=== PATIENT | male | born 1945 | race Caucasian/White ===

== ENCOUNTER → 2017-09-24 14:05 | Outpatient (CLI) | payer MEDICARE, SELFPAY ==
[2017-09-24 14:30] LABS: Basophils # 0.1 K/mm3 (0-0.2); Basophils % 1.1 % (0.1-2.0); Eosinophils # 0.5 K/mm3 (0.0-0.4); Eosinophils % 6.6 % (0.1-12.0); Hematocrit 40.6 % (42.0-52.0); Hemoglobin 12.7 g/dL (14.1-18.0); Lymphocytes % 24.3 K/mm3 (10-50); Mean Corpuscular HGB Conc 31.2 g/dL (31.8-35.4); Mean Corpuscular Hemoglobin 26.7 pg (27.0-31.2); Mean Corpuscular Volume 85.5 fl (80-94); Mean Platelet Volume 6.6 fl (7.4-10.4); Monocytes # 0.9 K/mm3 (0.1-1.0); Monocytes % 10.8 % (1.7-9.3); Neutrophils # 4.7 K/mm3 (1.8-7.8); Neutrophils % 57.1 % (37.0-80.0); Platelet Count 206 K/mm3 (142-424); Red Blood Count 4.75 M/mm3 (4.60-6.20); Red Cell Distribution Width 13.2 % (11.5-17.5); White Blood Count 8.2 K/mm3 (4.8-10.8)
[2017-09-24 15:16] LABS: Anion Gap 11.5 mEq/L (5-15); Blood Urea Nitrogen 25 mg/dL (7-18); Carbon Dioxide 31 mmol/L (21.0-32.0); Chloride 101 mmol/L (98-107); Estimated Glomerular Filt Rate 46 ml/min (>60); GFR (African American) 56 ML/MIN (>60); Glucose 186 mg/dL (74-106); Potassium 5.5 mmoL/L (3.5-5.1); Sodium 138 mmol/L (136-145)
== END ==
PROVIDERS: Visit Provider Surgery
DX: Z01.818 Encounter for other preprocedural examination (principal); Z86.010 Personal history of colon polyps; N28.9 Disorder of kidney and ureter, unspecified; I25.10 Atherosclerotic heart disease of native coronary artery without angina pectoris
CPT/HCPCS: 36415; 80048; 85025

== ENCOUNTER → 2017-10-16 11:41 | Outpatient (CLI) | payer MEDICARE, OTHER, SELFPAY ==
--- NOTE | 2017-10-16 11:42 | NM_ITS ---
History and Indications: Coronary artery disease, status post bypass surgery, hypertension diabetes, hyperlipidemia family history and shortness of breath Procedure: Patient received a 0.4 mg Lexiscan, resting heart rate was 64 beats per resting blood pressure 171/88, with Lexiscan maximum heart rate achieved was 82 bpm which is less than 85% of the maximum predicted heart rate and a blood pressure was 156/82. With Lexiscan patient complained of chest tightness. Electrocardiogram: Resting electrocardiogram showed the sinus rhythm high lateral infarct, the right ventricular conduction delay possible anteroseptal infarct. With Lexiscan there is less than 1.[address] segment depression noted from the baseline EKG. The EKG portion of the Lexiscan Myoview is nondiagnostic Cardiac stress and resting SPECT images: Cardiac stress and rest SPECT images were obtained using technetium 99 Myoview 31.1 mCi at stress and 10.4 mCi at rest, gated SPECT further analysis of segmental wall motion and calculation of the ejection fraction also done. Cardiac stress and rest images show decreased tracer activity in the anterior, anteroapical and anterolateral wall which improves on the resting images suggestive of reversible ischemia. Computer derived ejection fraction is 56% with no obvious regional wall motion abnormality, right ventricle is normal size and contractility. Conclusion: 1. The EKG portion of the Lexiscan Myoview is nondiagnostic. 2. Scintigraphic evidence of mild reversible is involving the anterior, anteroapical and anterolateral wall. Computer derived ejection fraction is 56% with no obvious regional wall motion abnormality, right ventricle is normal size and contractility. 3. Abnormal Lexiscan Myoview study.
--- NOTE | 2017-10-16 12:42 | CA_ITS ---
PROCEDURE: 2-D M-mode and color Doppler study. INDICATIONS FOR THE TEST: Chest pain COPD Heart Murmur Tobacco Smoking Palpitations Fatigue Syncopex Edema HypertensionxDiabetes Mellitusx Rheumatic Fever SOB DOExObesity Hyperlipidemia Family History HD Additional History CAD, Abnormal EKG, RBBB PATIENT INFORMATION HEIGHT: 5'8'' WEIGHT: 235 GENDER: Male B/P: 122/62 Comments: Moderate calcification of the Aortic valve with mild aortic stenosis noted. 2-D/M-MODE INTERPRETATION: 2-D MEASUREMENTS OBSERVED VALUES IN CMS Right Ventricular Dimension (RVDd) 2.6 Interventricular Septum (Thickness)(IVsd) 1.0 Left Ventricular Internal Dimensions(LVIDd) 5.1 Left Ventricular Posterior Wall (Thickness)(LVPWd) 1.1 Aortic Root 3.1 Aortic Cusp Separation 1.5 Left Atrial Dimensions (LAD) 3.8 2D 1. Technically very difficult study because of the patient's factor and poor acoustic windows 2. The left atrium is mildly enlarged, left ventricle is normal size, there is mild qualitative concentric left ventricular hypertrophy, visually estimated ejection fraction approximately 45-50%, there appears to be hypokinesis involving the distal septum and apical wall. A repeat study with Definity contrast is recommended. 3. The right atrium and right ventricle are normal size and contractility. 4. The aortic valve is thickened and calcified leaflet continue to display mobility. 5. The mitral valve has mitral calcification, there is no mitral stenosis 6. The pulmonic valve is poorly visualized. 7. The tricuspid valve is grossly normal. 8. No significant pericardial effusion noted. DOPPLER INTERROGATION: The aortic outflow velocities mildly increased, does not represent any significant aortic stenosis, there is no aortic insufficiency. Mild mitral and tricuspid regurgitation, tricuspid and jet velocity insufficient for calculation of right ventricular systolic pressure, grade 1 diastolic dysfunction seen without tissue Doppler evidence of raised left atrial pressure. CONCLUSION: 1. Technically difficult study because of the patient's factor and poor acoustic windows 2. Normal left ventricular size, mild concentric left ventricular hypertrophy, visually estimated ejection fraction approximately 50% with segmental wall motion abnormality described above, a repeat study with Definity contrast is recommended. Grade 1 diastolic dysfunction seen without tissue Doppler evidence of raised left atrial pressure. 3. Thickened and calcified aortic valve without Doppler evidence of significant aortic
--- NOTE | 2017-10-16 14:13 | HMH.ITSHM ---
amlodipine asa carvdilol lisinopril
== END ==
PROVIDERS: PCP Internal Medicine; Visit Provider Internal Medicine
DX: R06.09 Other forms of dyspnea (principal); R93.1 Abnormal findings on diagnostic imaging of heart and coronary circulation; I20.9 Angina pectoris, unspecified; I35.0 Nonrheumatic aortic (valve) stenosis; R42 Dizziness and giddiness
CPT/HCPCS: 78452; 93017; 93306; A9502; J2785

== ENCOUNTER → 2017-10-20 13:16 | Outpatient (CLI) | payer MEDICARE, OTHER, SELFPAY ==
--- NOTE | 2017-10-20 13:41 | US_ITS ---
US Arterial Ankle Brachial Ind History: ITS.REASON: claudication, bilateral calf pain ORDERING PHYSICIAN: Shimon De Paz MD PATIENT AGE: 72 years TECHNIQUE: Segmental pressures obtained of both right and left leg. These are compared to brachial blood pressure to yield index at each level sampled including summary MARIALUISA. The data sheets from the procedure are available in PACS FINDINGS Rest study only performed today No prior studies available for comparison. Blood pressures reported are in millimeters mercury. RIGHT LEG MARIALUISA = 1.2. RIGHT LEG TBI=0.7 Brachial BP: 174 Thigh BP: 248 Calf BP: 238 Ankle PT: 213 Ankle DP : 222 Digit =127 LEFT LEG MARIALUISA = 0.7 LEFT LEG TBI= 0.6 Brachial BPD: 167 Thigh BP: 244 Calf BP: 119 Ankle PT:119 Ankle DP: >254 Digit = 100 Pulses and waveforms: Normal IMPRESSION: 1. Low left MARIALUISA consistent with moderate arterial disease 2. Slightly low bilateral ABIs suggesting small vessel disease
== END ==
PROVIDERS: PCP Internal Medicine; Visit Provider Internal Medicine
DX: I73.9 Peripheral vascular disease, unspecified (principal); M79.661 Pain in right lower leg; M79.662 Pain in left lower leg
CPT/HCPCS: 93922

== ENCOUNTER → 2017-10-22 08:19 | Outpatient (CLI) | payer MEDICARE, OTHER, SELFPAY ==
--- NOTE | 2017-10-22 08:21 | CA_ITS ---
PROCEDURE: 2-D M-mode and color Doppler study INDICATIONS FOR THE TEST: Chest pain+ COPD Heart Murmur Tobacco Smoking Palpitations Fatigue Syncope Edema Hypertension+Diabetes Mellitus+ Rheumatic Fever SOB LEWIS Obesity+Hyperlipidemia Family History HD Additional History DEFINITY PATIENT INFORMATION HEIGHT: 68 WEIGHT:235 GENDER: Male B/P:120/60 2-D/M-MODE INTERPRETATION: 2-D MEASUREMENTS OBSERVED VALUES IN CMS Right Ventricular Dimension (RVDd) Interventricular Septum (Thickness)(IVsd) Left Ventricular Internal Dimensions(LVIDd) Left Ventricular Posterior Wall (Thickness)(LVPWd) Aortic Root Aortic Cusp Separation Left Atrial Dimensions (LAD) 2D Definity contrast this study is very suboptimal. DOPPLER INTERROGATION: CONCLUSION: Despite Definity contrast study is very suboptimal
== END ==
PROVIDERS: PCP Internal Medicine; Visit Provider Internal Medicine
DX: R06.09 Other forms of dyspnea (principal); R93.1 Abnormal findings on diagnostic imaging of heart and coronary circulation; I20.9 Angina pectoris, unspecified; R42 Dizziness and giddiness; I35.0 Nonrheumatic aortic (valve) stenosis
CPT/HCPCS: 93308; Q9957

== ENCOUNTER → 2017-11-17 14:05 | Outpatient (CLI) | payer MEDICARE, OTHER, SELFPAY | PROVIDERS: PCP Internal Medicine; Visit Provider Urology | DX: G47.33 Obstructive sleep apnea (adult) (pediatric) (principal); R06.83 Snoring; R40.0 Somnolence | CPT/HCPCS: G0399 ==

== ENCOUNTER → 2017-12-01 12:06 | Outpatient (CLI) | payer MEDICARE, SELFPAY ==
[2017-12-01 13:27] LABS: Anion Gap 10.2 mEq/L (5-15); Blood Urea Nitrogen 27 mg/dL (7-18); Calcium 8.7 mg/dL (8.5-10.1); Carbon Dioxide 30 mmol/L (21.0-32.0); Chloride 106 mmol/L (98-107); Creatinine,Serum 1.81 mg/dL (0.70-1.30); Estimated Glomerular Filt Rate 37 ml/min (>60); GFR (African American) 45 ML/MIN (>60); Glucose 245 mg/dL (74-106); Potassium 5.2 mmoL/L (3.5-5.1); Sodium 141 mmol/L (136-145)
== END ==
PROVIDERS: PCP Internal Medicine; Visit Provider Physician Assistant
DX: R06.09 Other forms of dyspnea (principal); I50.23 Acute on chronic systolic (congestive) heart failure
CPT/HCPCS: 36415; 80048

== ENCOUNTER → 2018-03-05 09:48 | Outpatient (CLI) | payer MEDICARE, OTHER, SELFPAY ==
--- NOTE | 2018-03-05 09:50 | CI_ITS ---
Cerebrovascular Exam Indications: 780.4 Dizziness and giddiness. IMPRESSIONS 1. Study suggests 70-99% stenosis involving the right internal carotid artery. Disease progression from the study of 2005. 2. Study suggests 20-49%(upper end of scale)stenosis involving the left internal carotid artery. Disease progression from the study of 2005. History: Coronary artery disease. Risk factors: Hypertension. Diabetes mellitus. Hyperlipidemia. Carotid duplex study. Complete study and Doppler flow study including spectral analysis, color and jacobo scale imaging. Height: Height: 175.3cm. Height: 69in. Weight: Weight: 105.2kg. Weight: 231.5lb. Body mass index: BMI: 34.3kg/m^2. Body surface area: BSA: 2.3m^2. Location: Vascular laboratory. Patient status: Outpatient. Tables: Arterial flow: + +--------+--------+ Location V sys V ed + +--------+--------+ Right CCA - proximal 72.3cm/s 15.7cm/s + +--------+--------+ Right CCA - distal 53.5cm/s 13.8cm/s + +--------+--------+ Right ECA 211cm/s -------- + +--------+--------+ Right ICA - proximal 358cm/s 112cm/s + +--------+--------+ Right ICA - mid 286cm/s 96cm/s + +--------+--------+ Right ICA - distal 100cm/s 24.4cm/s + +--------+--------+ Right vertebral 42.6cm/s -------- + +--------+--------+ Left CCA - proximal 101cm/s 22.3cm/s + +--------+--------+ Left CCA - distal 81.7cm/s 16.8cm/s + +--------+--------+ Left ECA 179cm/s -------- + +--------+--------+ Left ICA - proximal 127cm/s 34.1cm/s + +--------+--------+ Left ICA - mid 106cm/s 27.9cm/s + +--------+--------+ Left ICA - distal 62.3cm/s 22.1cm/s + +--------+--------+ Left vertebral 45.8cm/s -------- + +--------+--------+ Velocity ratios: + + + + + + Right, V sys Right, V ed Left, V sys Left, V ed + + + + + + Max ICA/dist CCA 6.69 8.12 1.55 2.03 + + + + + + (Report amended ) Electronically signed by: Yvon Russell [id number]
== END ==
PROVIDERS: PCP Internal Medicine; Visit Provider Internal Medicine
DX: I65.29 Occlusion and stenosis of unspecified carotid artery (principal); R42 Dizziness and giddiness
CPT/HCPCS: 93880

== ENCOUNTER → 2018-03-16 19:26 | Outpatient (CLI) | payer MEDICARE, OTHER, SELFPAY | PROVIDERS: PCP Internal Medicine; Visit Provider Nurse Practitioner Family | DX: G47.33 Obstructive sleep apnea (adult) (pediatric) (principal); R40.0 Somnolence | CPT/HCPCS: 95811 ==

== ENCOUNTER → 2018-04-03 13:31 | Outpatient (CLI) | payer MEDICARE, OTHER, SELFPAY ==
--- NOTE | 2018-04-03 13:35 | CT_ITS ---
CT chest wo con HISTORY: Chest pain and shortness of air, abnormal chest x-ray, shortness of breath. Pleural thickening versus mass in the left lower lobe ITS.REASON: without contrast ORDERING PHYSICIAN: Shimon De Paz MD PATIENT AGE: 72 years COMPARISON: 08/20/2011 Technique: Axial images obtained with sagittal and coronal reformats. All CT scans at the facility use one or more dose reduction, viz: automated exposure control, ma/kV adjustment per patient size (including targeted exams where dose is matched to indication, i.e. head), or iterative reconstruction technique. FINDINGS: There are scattered small nodes in the mediastinum not significantly changed. No dominant adenopathy or mass. There has been a prior CABG. No central obstructing lesion. There are scattered mild atelectatic/fibrotic changes on the right. Noncalcified 4 mm left upper lobe nodule #3/25. Atelectatic or fibrotic changes in the left upper lobe posterior laterally with pleural thickening which is developed in the interval.. There is a new 4.5 x 2.5 x 3.6 cm soft tissue mass in the left lung base posteriorly. There are some ectatic bronchi along the peripheral aspect of this lesion. There is a small loculated pleural effusion in the left lung base posteriorly. The soft tissue density would account for the radiographic abnormality. Upper abdominal images show cholelithiasis. No acute bony findings are evident. IMPRESSION: 1. There is a new 4.5 x 2.5 x 3.6 cm soft tissue mass in the left lung base posteriorly. There are associated thickened bronchi around this lesion along with multiloculated effusion and pleural thickening on the left. Differential diagnosis includes neoplasm, rounded atelectasis or pneumonia with dense consolidation. Bronchoscopy suggested for further evaluation. 2. Pleural thickening on the left with small loculated effusion in the left lung base
== END ==
PROVIDERS: PCP Internal Medicine; Visit Provider Internal Medicine
DX: E11.9 Type 2 diabetes mellitus without complications (principal); E78.5 Hyperlipidemia, unspecified; G47.33 Obstructive sleep apnea (adult) (pediatric); I11.9 Hypertensive heart disease without heart failure; I25.10 Atherosclerotic heart disease of native coronary artery without angina pectoris; I35.0 Nonrheumatic aortic (valve) stenosis; I45.10 Unspecified right bundle-branch block; I50.20 Unspecified systolic (congestive) heart failure; I65.29 Occlusion and stenosis of unspecified carotid artery; I73.9 Peripheral vascular disease, unspecified; N18.3 Chronic kidney disease, stage 3 (moderate); N18.9 Chronic kidney disease, unspecified; R06.00 Dyspnea, unspecified; R42 Dizziness and giddiness
CPT/HCPCS: 71250

== ENCOUNTER → 2018-05-11 14:48 | Outpatient (CLI) | payer MEDICARE, OTHER, SELFPAY ==
--- NOTE | 2018-05-11 14:54 | CT_ITS ---
CT head/brain wo con HISTORY: Dizziness, imbalance ITS.REASON: UNSTEADY BALANCE ORDERING PHYSICIAN: Yordy Narayanan PATIENT AGE: 72 years COMPARISON: None TECHNIQUE: Axial images obtained without contrast. Brain and bone windows reviewed. All CT scans at the facility use one or more dose reduction, viz: automated exposure control, ma/kV adjustment per patient size (including targeted exams where dose is matched to indication, i.e. head), or iterative reconstruction technique. FINDINGS: No midline shift, mass effect, intracranial hemorrhage, hydrocephalus, or extra-axial fluid collection is evident. There are intralesional changes of age with brain volume loss and mild periventricular ischemic gliotic change. The calvarium has an unremarkable appearance. No mastoid effusion. No sinus air-fluid levels.. IMPRESSION: No acute intracranial findings
== END ==
PROVIDERS: PCP Internal Medicine; Visit Provider Internal Medicine
DX: R26.89 Other abnormalities of gait and mobility (principal)
CPT/HCPCS: 70450

== ENCOUNTER → 2018-05-18 15:02 | Outpatient (CLI) | payer MEDICARE, OTHER, SELFPAY ==
[2018-05-18 15:23] LABS: Basophils # 0.1 K/mm3 (0-0.2); Basophils % 0.8 % (0.1-2.0); Eosinophils # 0.6 K/mm3 (0.0-0.4); Eosinophils % 7.3 % (0.1-12.0); Hematocrit 38.1 % (42.0-52.0); Hemoglobin 12.1 g/dL (14.1-18.0); Lymphocytes # 1.9 K/mm3 (0.7-4.5); Lymphocytes % 24.5 % (10-50); Mean Corpuscular HGB Conc 31.8 g/dL (31.8-35.4); Mean Corpuscular Hemoglobin 26.9 pg (27.0-31.2); Mean Corpuscular Volume 84.7 fl (80-94); Monocytes # 0.8 K/mm3 (0.1-1.0); Monocytes % 9.4 % (1.7-9.3); Neutrophils # 4.6 K/mm3 (1.8-7.8); Neutrophils % 58.1 % (37.0-80.0); Platelet Count 213 K/mm3 (142-424); Red Cell Distribution Width 14.4 % (11.5-17.5); White Blood Count 7.9 K/mm3 (4.8-10.8)
[2018-05-20 09:31] LABS: Vitamin B12 616 pg/mL (232-1245)
== END ==
PROVIDERS: Visit Provider Specialist
DX: R18.8 Other ascites (principal); G47.33 Obstructive sleep apnea (adult) (pediatric)
CPT/HCPCS: 36415; 82607; 84443; 85025

== ENCOUNTER → 2019-06-28 10:03 | Outpatient (CLI) | payer MEDICARE, OTHER, SELFPAY ==
[2019-06-28 10:30] LABS: Basophils # 0.1 K/mm3 (0-0.2); Basophils % 0.7 % (0.1-2.0); Eosinophils # 0.4 K/mm3 (0.0-0.4); Eosinophils % 5.5 % (0.1-12.0); Hemoglobin 12.2 g/dL (14.1-18.0); Lymphocytes # 1.8 K/mm3 (0.7-4.5); Lymphocytes % 24.5 % (10-50); Mean Corpuscular HGB Conc 32.1 g/dL (31.8-35.4); Mean Corpuscular Hemoglobin 27.6 pg (27.0-31.2); Mean Corpuscular Volume 85.7 fl (80-94); Mean Platelet Volume 7.2 fl (7.4-10.4); Monocytes # 0.8 K/mm3 (0.1-1.0); Monocytes % 11.4 % (1.7-9.3); Neutrophils # 4.3 K/mm3 (1.8-7.8); Neutrophils % 57.9 % (37.0-80.0); Platelet Count 208 K/mm3 (142-424); Red Blood Count 4.44 M/mm3 (4.60-6.20); Red Cell Distribution Width 14.2 % (11.5-17.5); White Blood Count 7.4 K/mm3 (4.8-10.8)
[2019-06-28 11:29] LABS: Chloride 106 mmol/L (98-107); Sodium 140 mmol/L (136-145)
[2019-06-28 11:30] LABS: Potassium 4.2 mmoL/L (3.5-5.1)
[2019-06-28 11:32] LABS: Alanine Aminotransferase 17 U/L (12-78); Albumin Level 3.5 g/dl (3.5-5.0); Albumin/Globulin Ratio 1.3 (1.1-1.8); Alkaline Phosphatase 75 U/L (38-126); Anion Gap 11.2 mEq/L (5-15); Aspartate Amino Transferase 23 U/L (17-59); Bilirubin,Total 0.3 mg/dl (0.2-1.3); Blood Urea Nitrogen 29 mg/dl (9-20); Carbon Dioxide 27 mmol/L (22.0-30.0); Estimated Glomerular Filt Rate 46 ml/min (>60); GFR (African American) 56 ML/MIN (>60); Globulin 2.8 g/dL (1.3-3.2); Glucose 173 mg/dl (74-100); Total Protein,Serum 6.3 g/dl (6.3-8.2)
== END ==
PROVIDERS: Visit Provider Surgery
DX: Z12.11 Encounter for screening for malignant neoplasm of colon (principal); R18.8 Other ascites
CPT/HCPCS: 36415; 80053; 85025

== ENCOUNTER → 2019-07-06 06:08 | Outpatient (CLI) | payer MEDICARE, OTHER, SELFPAY ==
--- NOTE | 2019-07-06 06:09 | NM_ITS ---
APPROVED REPORT Exam: Nuclear Stress Test Indication: Chest pain, SOB, Pre op, CAD, HTN, DM, High cholesterol, Former Tobacco use, Family history Patient Location: Outpatient Stress Tech: Lauren Kapoor MD Tech:Lise Deal, ARRT, RT (R)(N) Ht: 5 ft 8 in Wt: 230 lbs Bra Size: 119 HR: 64 bpm BP: 157/75 mmHg BSA: 2.17 m2 BMI: 34.9 History: Chest pain, SOB, Pre op, CAD, HTN, DM, High cholesterol, Former Tobacco use, Family history Procedure: Patient received a 0.4 mg of intravenous Lexiscan, resting heart rate 64 bpm, resting blood pressure 157/75 mmHg, with Lexiscan maximum heart rate achived was 74 bpm which is % of the maximum predicted heart rate and blood pressure was 119/56 mmHg. With Lexiscan, patient denied any complaint of chest pain. Cardiac Stress and Resting SPECT Images: Cardiac Stress and Resting SPECT images were obtained using technetium 99m Myoview 30.5 mCi stress and 10.45 mCi at rest. EF is low at 49%, anterior akinesia There is fixed decrease activity in the anterior wall which slightly improves on delayed images Conclusion: Low EF with ischemic changes in anterior wall Electronically signed by : Yvon Russell MD 07/06/2019 16:35:04
--- NOTE | 2019-07-06 06:09 | CA_ITS ---
APPROVED REPORT Exam: Pharmacologic Technologist: Lauren Kapoor, Ht: 5 ft 8 in Wt: 230 lbs BSA: 2.17 m2 HR: 64 bpm BP: 157/75 mmHg Indications: Chest pain Medical History Medical History: Diabetes, HTN, CAD s/p CABG Medications: Lorsartan:Gillipizide:Atrovastatin:Carvedilol:Lasix:Clopidogrel: Isosorbide,Aspirin,Famatidine, Allergies: No known drug allergies Cardiac Risk Factors: HTN, Hyperlipidemia, Diabetes (non-insulin) Previous Cardiac Procedures: CABG, PCI, Myocardial infarction Stress Test Details Test: LEXISCAN HR Resting HR: 65 bpm Max Heart Rate (APMHR): 147 bpm Max HR Achieved: 82 bpm Target HR (85% APMHR): 124 bpm % of APMHR: 55 Recovery HR: 74 bpm BP Resting BP: 157/75 mmHg Max BP: 176/86 mmHg Recovery BP: 158.0/72.0 mmHg ECG Clinical Reason for Termination: Completed protocol Exercise duration: 04:06 min Highest Stage Achieved: Exercise capacity: 1.0 METs Stress ECG Conclusion Mild malaise - no chest pain - no ectopy - no significant ST-T changes . Conclusion - unremarkable Lexiscan stress - myoview images reported separately. Test Summary REST . . . . . . . Resting REST 08:39 . . 65 . 157/ 75 . . Stage 1 01:00 . . 71 . . . . Stage 2 01:00 . . 74 . 119/ 56 . . Stage 3 01:00 . . 74 . 170/ 82 . . Stage 4 01:00 . . 74 . . . . Stage 4 01:06 . . 74 . . . Stop exercise at 04:06 RECOVERY 01:00 . . 74 . 176/ 86 . . RECOVERY 02:00 . . 75 . 176/ 82 . . RECOVERY 03:00 . . 72 . 176/ 82 . . RECOVERY 04:00 . . 73 . 176/ 82 . . RECOVERY 04:38 . . 74 . 176/ 82 . . Electronically signed by : Shimon De Paz, 07/08/2019 12:04:59
--- NOTE | 2019-07-06 07:27 | HMH.ITSHM ---
Current Home Medications as stated by this patient Michael Sheffield or new accounts representative. []LOSARTAN GLIPIZIDE ATORVASTATIN CARVEDILOL FUROSEMIDE CLOPIDOGREL HYDROCODONE ISOSORBIDE ASA FAMOTIDINE VITAMIN D3 MOTION SICKNESS RELIEF
== END ==
PROVIDERS: PCP Internal Medicine; Visit Provider Nurse Practitioner Family
DX: E78.5 Hyperlipidemia, unspecified (principal); I11.9 Hypertensive heart disease without heart failure; I25.10 Atherosclerotic heart disease of native coronary artery without angina pectoris; I73.9 Peripheral vascular disease, unspecified; Z87.891 Personal history of nicotine dependence; Z95.1 Presence of aortocoronary bypass graft
CPT/HCPCS: 78452; 93017; 93306; A9502; J2785

== ENCOUNTER → 2019-09-29 09:58 | Outpatient (CLI) | payer MEDICARE, OTHER, SELFPAY ==
[2019-09-29 11:22] LABS: Coronavirus 19 IgG Antibody Negative (Negative); Coronavirus 19 IgM Antibody Negative (Negative)
== END ==
PROVIDERS: Visit Provider Surgery
DX: Z01.818 Encounter for other preprocedural examination (principal); Z12.11 Encounter for screening for malignant neoplasm of colon
CPT/HCPCS: 36415; 86328

== ENCOUNTER 2019-09-30 06:06 | Day surgery (SDC) | payer MEDICARE, OTHER, SELFPAY ==
--- NOTE | 2019-09-28 11:01 | SUR.PREOP ---
09/28/2019 @ 1100--PHONE CALL MADE TO PATIENT. PATIENT UNDERSTANDS THAT LAB WORK AND COVID TESTING NEEDS TO BE COMPLETED @ 1030 ON 09/29/2019. PATIENT UNDERSTANDS IF LAB WORK AND COVID-19 TESTS ARE NOT COMPLETED BY 12PM ON THAT DATE, THE SURGERY SCHEDULED WILL BE CANCELLED AND RESCHEDULED FOR ANOTHER TIME.
[2019-09-30 06:39] VITALS: BP 176/81; PULSE 66; RESP 20; TEMP 36.8; O2SAT 97; BMI 34.9
[2019-09-30 06:57] LABS: POC Glucose,Bedside 177 (70-110)
--- NOTE | 2019-09-30 07:05 | P.PN_ITS ---
[facility] Anesthesia Checklist - Patient Identification Patient Identification: Arm Band, Verbal (Name & ) - Structural Data Admitted From: Home Planned Operative Procedure/s: Colonoscopy Consent for Planned Operative Procedure(s) Verified: Yes Verified Documents: Surgical Consent, History and Physical, Cardiac Clearance - NPO Status Verified Time NPO: 00:00 - Chart Verification Results Verified: CBC, BMP, PT, PTT, INR - Additional verifications Fingerstick Blood Glucose: 117 Anesthesia Reactions: No - Airway Assessment C-Spine Mobility Assessed: Yes TMJ Mobility Assessed: Yes Dentition: Edentulous - Neurological Assessment Level of Consciousness: Awake, Alert, Appropriate, Follows Commands Hx Seizures: No Numbness or tingling in extremities: No - Anesthesia Plan Anesthesia Risk discussed: Yes Anesthesia Plan: Verified ASA Class: III Anesthesia Type: MAC [facility] History I have reviewed the patient's past medical history: Yes Medical History: Reports:: Cancer (skin), Carotid Stenosis, Congestive Heart Failure, Coronary Artery Disease, Diabetes Mellitus Type 2, Hyperlipidemia, Hypertension Denies:: Diabetes Mellitus Type 1, Internal Pacemaker, MRSA, Seizures *Have you ever received a pneumonia vaccine?: Yes *Have you received a flu vaccine this season?: Yes Other Medical History: Reports: Other Comment:: obesity, angina, PAD Anesthesia experience/problems:: None Other Surgeries: Yes: Angioplasty, CABG, Cancer Surgery, Cardiac Catheterization, Cardiac Surgery, Colonoscopy, Coronary Stent, Skin Cancer Excision, Other. No: Pacemaker Amputation: No Fractures: No - *Social History Smoking Status: Former smoker Tobacco Type: cigarettes Alcohol Intake: never Alcohol Intake Frequency:: other Substance Use Type: denies use *Occupational Status:: retired Housing: house Household Members: spouse *Travel in the last 8 weeks: None Family Hx:: Hypertension, Diabetes, Coronary Artery Disease, Stroke
[2019-09-30 07:23] VITALS: O2SAT 97
[2019-09-30 08:25] VITALS: BP 125/70; PULSE 68; RESP 16; TEMP 36.5; O2SAT 95
--- NOTE | 2019-09-30 08:28 | HMH.SCOPE ---
- Procedure: Date: 09/30/19 Procedure Performed:: Colonoscopy with polypectomy by means other than snare Indications:: History of colon polyps Performing Provider:: Jd Aly MD Referring Provider:: . Sedation:: Monitored anesthesia care Procedure:: After informed consent was obtained the patient was taken to the endoscopy suite. Sedation ensued after the patient was transferred to the left lateral decubitus position. Pulse, blood pressure, and oxygen saturation were monitored throughout the procedure. Digital rectal exam revealed no significant abnormality. The colonoscope was placed in position. The entire colon was evaluated. The colonoscope was carefully removed and the patient was transferred to recovery in stable condition. Please see findings and specimens below for detail. Findings:: Bowel preparation fair to moderate Hemorrhoidal tags Significant lack of relaxation/spasticity Multiple hyperplastic-appearing polyps throughout colon with specific concentration in sigmoid Multiple sessile polyps (see specimens) Specimens:: Mid right colon focus of hypervascularity (biopsied) Mid right colon polyp and adjacent polyps (x3) Hepatic flexure polyp Sessile adjacent polyps around 65 cm (x4) Polyp at 50 cm Large sessile polyp at 35 cm Cluster of polyps around 25 cm (biopsied) Recommendations:: Timing of repeat colonoscopy is pending pathology but will likely be between 1-3 years secondary to volume of polyps and lack of relaxation/spasticity. Complications:: No immediate Estimated blood obtained (mL): 1
[2019-09-30 08:35] VITALS: BP 129/69; PULSE 69; RESP 16; O2SAT 98
[2019-09-30 08:45] VITALS: BP 149/78; PULSE 66; RESP 16; O2SAT 96
[2019-09-30 08:55] VITALS: BP 152/79; PULSE 68; RESP 16; O2SAT 96
== END 2019-09-30 08:55 | disposition home or self-care (01) ==
LOC: OUTP 06:07
PROVIDERS: PCP Internal Medicine; Visit Provider Surgery
PROC: 0DJD8ZZ Inspection of Lower Intestinal Tract, Via Natural or Artificial Opening Endoscopic (ICD-10-PCS; principal; 2019-09-30 07:30)
DX: Z12.11 Encounter for screening for malignant neoplasm of colon (principal); K58.9 Irritable bowel syndrome, unspecified; K64.9 Unspecified hemorrhoids; K63.5 Polyp of colon; Z86.010 Personal history of colon polyps; Z88.8 Allergy status to other drugs, medicaments and biological substances; Z79.82 Long term (current) use of aspirin; Z79.899 Other long term (current) drug therapy; Z79.4 Long term (current) use of insulin; I25.10 Atherosclerotic heart disease of native coronary artery without angina pectoris; E11.9 Type 2 diabetes mellitus without complications; Z87.19 Personal history of other diseases of the digestive system
CPT/HCPCS: 45380; 82962; 88305; J2704

== ENCOUNTER → 2020-07-18 10:21 | Outpatient (CLI) | payer MEDICARE, OTHER, SELFPAY ==
[2020-07-18 11:37] LABS: Coronavirus 19 IgG Antibody Positive (Negative); Coronavirus 19 IgM Antibody Negative (Negative)
== END ==
PROVIDERS: Visit Provider Surgery
DX: Z01.818 Encounter for other preprocedural examination (principal); Z20.822 Contact with and (suspected) exposure to COVID-19; Z12.11 Encounter for screening for malignant neoplasm of colon; Z86.010 Personal history of colon polyps
CPT/HCPCS: 36415; 86328

== ENCOUNTER 2020-07-20 07:56 | Day surgery (SDC) | payer MEDICARE, OTHER, SELFPAY ==
[2020-07-18 11:00] VITALS: BMI 34.9
[2020-07-20] VITALS (7 sets, daily range): BP systolic 85–155; BP diastolic 53–83; PULSE 64–72; RESP 14–18; TEMP 36.2–36.4; O2SAT 91–97
[2020-07-20 09:59] LABS: POC Glucose,Bedside 185 (70-110)
--- NOTE | 2020-07-20 11:25 | HMH.SCOPE ---
- Procedure: Date: 07/20/20 Patient Date of :: 1945 Procedure Performed:: Colonoscopy with polypectomy by means other than snare Indications:: History of polyps (sessile serrated adenomas) Performing Provider:: Jd Aly MD Referring Provider:: . Sedation:: Monitored anesthesia care Procedure:: After informed consent was obtained the patient was taken to the endoscopy suite. Sedation ensued after the patient was transferred to the left lateral decubitus position. Pulse, blood pressure, and oxygen saturation were monitored throughout the procedure. Digital rectal exam revealed no significant abnormality. The colonoscope was placed in position. The entire colon was evaluated. The colonoscope was carefully removed and the patient was transferred to recovery in stable condition. Please see findings and specimens below for detail. Findings:: Hemorrhoidal cushions/tags Small area of nodularity along posterior anal canal consistent with either scar tissue or small prostatic nodule Bowel preparation moderate Moderate lack of relaxation Spasticity significantly improved versus prior evaluation Sessile right colon polyp Specimens:: Sessile right colon polyp Recommendations:: Timing of repeat colonoscopy is pending pathology but will likely be around 1-2 years secondary to history of multiple complex sessile serrated adenomas, moderate bowel preparation, and moderate lack of relaxation. Complications:: No immediate Estimated blood obtained (mL): 1
--- NOTE | 2020-07-20 15:25 | P.PN_ITS ---
[facility] Anesthesia Checklist - Patient Identification Patient Identification: Arm Band - Structural Data Admitted From: Home Planned Operative Procedure/s: Colonoscopy Consent for Planned Operative Procedure(s) Verified: Yes Verified Documents: Surgical Consent, History and Physical - NPO Status Verified Time NPO: 00:00 - Additional verifications Anesthesia Reactions: No - Airway Assessment C-Spine Mobility Assessed: Yes TMJ Mobility Assessed: Yes Dentition: Good Dentition - Neurological Assessment Level of Consciousness: Awake, Alert - Anesthesia Plan Anesthesia Risk discussed: Yes Anesthesia Plan: Verified ASA Class: III Anesthesia Type: MAC [facility] History Medical History: Reports:: Carotid Stenosis, Congestive Heart Failure, Coronary Artery Disease, Diabetes Mellitus Type 2, Hyperlipidemia, Hypertension Denies:: Cancer, Diabetes Mellitus Type 1, Internal Pacemaker, MRSA, Seizures *Have you ever received a pneumonia vaccine?: No *Have you received a flu vaccine this season?: No Other Medical History: Reports: Other Anesthesia experience/problems:: NAC Other Surgeries: Yes: Angiogram, Angioplasty, CABG, Cancer Surgery, Cardiac Catheterization, Cardiac Surgery, Colonoscopy, Coronary Stent, Skin Cancer Excision, Other. No: Pacemaker Amputation: No Fractures: No - *Social History Last grade of school completed: High school graduate Smoking Status: Former smoker Tobacco Type: cigarettes Alcohol Intake: never Alcohol Intake Frequency:: other Substance Use Type: denies use *Occupational Status:: retired Housing: house Household Members: spouse *Travel in the last 8 weeks: None Family Hx:: Unable to obtain
--- NOTE | 2020-07-20 15:26 | P.PN_ITS ---
[facility] Anesthesia Record Part I Intake, IV Amount: 500 Estimated blood loss (mL): 0 Urine output (mL): 0 Blood Products used (#): none Blood Pressure: 85/53 SaO2: 92 Pulse Rate: 66 Respiratory Rate: 14 Temperature: 97.2 F Patient is:: Drowsy, Stable
== END 2020-07-20 12:04 | disposition home or self-care (01) ==
LOC: OUTP 07:57
PROVIDERS: PCP Internal Medicine; Visit Provider Surgery
PROC: 0DJD8ZZ Inspection of Lower Intestinal Tract, Via Natural or Artificial Opening Endoscopic (ICD-10-PCS; CPT 45380; principal; 2020-07-20 09:30)
DX: K58.9 Irritable bowel syndrome, unspecified (principal); K63.5 Polyp of colon; K64.0 First degree hemorrhoids; K62.9 Disease of anus and rectum, unspecified; Z86.010 Personal history of colon polyps; E11.9 Type 2 diabetes mellitus without complications; E78.5 Hyperlipidemia, unspecified; I25.10 Atherosclerotic heart disease of native coronary artery without angina pectoris; I11.0 Hypertensive heart disease with heart failure; I50.9 Heart failure, unspecified; I65.29 Occlusion and stenosis of unspecified carotid artery; Z85.9 Personal history of malignant neoplasm, unspecified
CPT/HCPCS: 45380; 82962; 88305

== ENCOUNTER → 2021-06-26 16:50 | Outpatient (CLI) | payer MEDICARE, OTHER, SELFPAY ==
[2021-06-26 17:34] LABS: Basophils # 0.1 K/mm3 (0-0.2); Basophils % 0.8 % (0.1-2.0); Eosinophils # 0.4 K/mm3 (0.0-0.4); Hematocrit 39.9 % (42.0-52.0); Hemoglobin 12.6 g/dL (14.1-18.0); Lymphocytes # 1.4 K/mm3 (0.7-4.5); Lymphocytes % 20.9 % (10-50); Mean Corpuscular HGB Conc 31.7 g/dL (31.8-35.4); Mean Corpuscular Hemoglobin 28.3 pg (27.0-31.2); Mean Corpuscular Volume 89.3 fl (80-94); Mean Platelet Volume 8.3 fl (7.4-10.4); Monocytes # 0.8 K/mm3 (0.1-1.0); Monocytes % 11.4 % (1.7-9.3); Neutrophils # 4.1 K/mm3 (1.8-7.8); Neutrophils % 60.8 % (37.0-80.0); Platelet Count 223 K/mm3 (142-424); Red Blood Count 4.47 M/mm3 (4.60-6.20); Red Cell Distribution Width 14.3 % (11.5-17.5); White Blood Count 6.7 K/mm3 (4.8-10.8)
[2021-06-26 18:58] LABS: Hemoglobin A1C 6.8 % (4.0-6.0)
== END ==
PROVIDERS: Visit Provider Internal Medicine
DX: E11.59 Type 2 diabetes mellitus with other circulatory complications (principal); I10 Essential (primary) hypertension; R23.3 Spontaneous ecchymoses
CPT/HCPCS: 83036; 85025

== ENCOUNTER → 2021-08-01 09:30 | Outpatient (CLI) | payer MEDICARE, OTHER, SELFPAY ==
--- NOTE | 2021-08-01 09:31 | US_ITS ---
FINAL REPORT CLINICAL HISTORY: abdominal bruit FINDINGS: Limited sonographic images of the abdominal aorta were obtained. The abdominal aorta measures up to 2.2 cm. No aneurysm is identified. IMPRESSION: No evidence of abdominal aortic aneurysm. Reviewed, Interpreted and Dictated by Good Craig III, MD Transcribed by Chelsea Joel Authenticated by Good Craig III, MD on 08/01/2021 12:56:00 PM [facility]
--- NOTE | 2021-08-01 10:45 | CA_ITS ---
APPROVED REPORT EXAM: Comprehensive 2D, Doppler, and color-flow Echocardiogram Managing Attorney: Gisela Denise CRT Ht: 5 ft 9 in Wt: 230lbs BSA: 2.19 BP: 146/69 mmHg Indications: Congestive Heart Failure, Murmur, Shortness of Breath, Fatigue, CAD, Hypertension/HDD, CABG, AAA, EX SMOKER 2D Dimensions LVOT 1.82 cm (M/F) 1.5-2.5 M-Mode Dimensions RVDd 3.09 cm (0.9-2.6) LA Diam 4.25 cm (1.9-4.0) LVDd 5.14 cm (3.5-5.7) Ao Diam 3.92 cm (2.0-3.7) LVDs 4.22 cm (3.5-5.7) IVSd 2.21 cm (0.6-1.1) PWd 1.00 cm (0.6-1.1) EF (Teich) 37.00% FS 17.90% EDV (Teich) 126.10 mL TAPSE 1.61 (<1.7) ESV (Teich) 79.50 mL LV Diastology E Decel Time 207.00 (160-240 msec) E/A Ratio 1.04 MED E' 5.20 (< 7 cm/sec) MED A' 7.40 cm/s E'/MED E' Ratio 14.94 (>14) LAT E' 6.90 (<10 cm/sec) LAT A' 8.00 cm/s E/LAT E' Ratio 11.26 (>14) Aortic Valve LVOT Max 95.00 (70-110 cm/s) LVOT VTI 22.88 cm AoV Peak Gordon. 236.00 (50-130 cm/s) AO Peak GR. 22.50 mmHg AO Mean GR. 14.00 (<5 mmHg) AO VTI 53.12 (18-25 cm) PRIYA (VTI) 1.12 (2.5-4.5 cm2) Mitral Valve MV E Max Gordon. 78.00 (40-130 cm/s) MV A Velocity 75.00 (40-130 cm/s) E/A Ratio 1.04 MV Decel. Time 207.00 (160-240 ms) MV PHT 61.00 ms Pulmonary Valve PV Peak Velocity 160.00 (50-150 cm/s) Tricuspid Valve TR P. Velocity 180.00 cm/s RAP Estimate 10.00 mmHg RVSP 22.90 mmHg Left Ventricle Left atrium is mildly enlarged, left ventricle is normal size, mild concentric left ventricular hypertrophy, estimated ejection fraction 50% with no obvious regional wall motion abnormality, endocardial surfaces are very poorly visualized. Diastolic parameters are inconclusive. Right Ventricle Right atrium and right ventricle are mildly enlarged with normal contractility. Aortic Valve Aortic valve is thickened and calcified with significant restriction to leaflet mobility, however the mean gradient across the aortic valve is 17 mmHg, valve area is 1.2 cm represents moderate aortic stenosis. There is no significant aortic insufficiency. Mitral Valve Mitral valve leaflets are minimally thickened, there is mild mitral regurgitation. Tricuspid Valve Tricuspid valve is grossly normal, there is mild tricuspid regurgitation, tricuspid regurgitation jet velocity is inadequate for calculation of the right ventricular systolic pressure. Pulmonic Valve Pulmonic valve is poorly visualized. Great Vessels Aortic root is normal size. Inferior vena cava is poorly visualized. Pericardium No significant pericardial effusion noted. Conclusion 1. Technically difficult study because of the patient factors and poor acoustic windows. 2. Mild biatrial enlargement, normal left ventricular size, mild concentric left ventricular hypertrophy, visually estimated ejection fraction 50% with no regional wall motion abnormality, diastolic parameters are inconclusive. 3. Thickened and calcified aortic valve, there is restriction to leaflet mobility, mean gradient across aortic valve is 17 mmHg, valve area is 1.2 cm represents moderate aortic stenosis. There is no significant aortic insufficiency. 4. No significant pericardial effusion noted 5. Inferior vena cava is poorly visualized. Electronically signed by : Yury Granados MD 08/01/2021 21:22:28
== END ==
PROVIDERS: PCP Internal Medicine; Visit Provider Nurse Practitioner Family
DX: R01.1 Cardiac murmur, unspecified (principal); R09.89 Other specified symptoms and signs involving the circulatory and respiratory systems; I25.10 Atherosclerotic heart disease of native coronary artery without angina pectoris
CPT/HCPCS: 76770; 93306

== ENCOUNTER → 2022-07-05 16:54 | Outpatient (CLI) | payer MEDICARE, OTHER, SELFPAY ==
[2022-07-05 18:49] LABS: Hematocrit 36.8 % (42.0-52.0)
[2022-07-05 18:59] LABS: Hemoglobin A1C 5.7 % (4.0-6.0)
[2022-07-05 19:41] LABS: Chloride 103 mmol/L (98-107)
[2022-07-05 19:42] LABS: Potassium 4.2 mmoL/L (3.5-5.1); Sodium 139 mmol/L (136-145)
[2022-07-05 19:44] LABS: Alanine Aminotransferase 15 U/L (12-78); Aspartate Amino Transferase 22 U/L (17-59); Blood Urea Nitrogen 66 mg/dl (9-20); Estimated Glomerular Filt Rate 16 ml/min (>60); GFR (African American) 19 ML/MIN (>60)
[2022-07-05 19:45] LABS: Albumin Level 3.6 g/dl (3.5-5.0); Albumin/Globulin Ratio 1.3 (1.1-1.8); Alkaline Phosphatase 70 U/L (38-126); Anion Gap 15.2 mEq/L (5-15); Bilirubin,Total 0.3 mg/dl (0.2-1.3); Calcium 7.9 mg/dl (8.4-10.2); Carbon Dioxide 25 mmol/L (22.0-30.0); Chol/HDL Ratio 4.1 (1-3.5); Cholesterol 119 mg/dl (140-200); Globulin 2.7 g/dL (1.3-3.2); Glucose 86 mg/dl (74-100); HDL Cholesterol 29 mg/dl (40-60); Total Protein,Serum 6.3 g/dl (6.3-8.2); Triglycerides 204 mg/dl (30-150); VLDL Cholesterol 41 mg/dL (0-40)
[2022-07-05 19:56] LABS: Direct LDL Cholesterol 46.71 mg/dL (100-129)
== END ==
PROVIDERS: PCP Internal Medicine; Visit Provider Internal Medicine
DX: I25.118 Atherosclerotic heart disease of native coronary artery with other forms of angina pectoris (principal); I10 Essential (primary) hypertension; I13.10 Hypertensive heart and chronic kidney disease without heart failure, with stage 1 through stage 4 chronic kidney disease, or unspecified chronic kidney disease; E11.59 Type 2 diabetes mellitus with other circulatory complications; E78.5 Hyperlipidemia, unspecified; N18.9 Chronic kidney disease, unspecified; J44.9 Chronic obstructive pulmonary disease, unspecified; Z95.1 Presence of aortocoronary bypass graft; Z79.4 Long term (current) use of insulin
CPT/HCPCS: 80053; 80061; 83036; 85014

== ENCOUNTER 2022-09-25 12:45 | Emergency (ER) | payer MEDICARE, OTHER, SELFPAY ==
[2022-09-25] VITALS (8 sets, daily range): BP systolic 128–172; BP diastolic 64–79; PULSE 61–66; RESP 16–19; TEMP 36.8; O2SAT 94–98; BMI 34.4
--- NOTE | 2022-09-25 12:45 | ECG_ITS ---
APPROVED REPORT Exam: Resting ECG HR:66 bpm ECG Measurements Heart Rate 66 AXES ND 198 P 110 QRSd 129 QRS 59 QT 420 T 62 QTc 434 Conclusion SINUS RHYTHM WITH FREQUENT VENTRICULAR PREMATURE COMPLEXES RIGHT BUNDLE BRANCH BLOCK [120+ ms QRS DURATION, UPRIGHT V1, 40+ ms S IN I/aVL/V4/V5/V6] ANTEROSEPTAL MYOCARDIAL INFARCTION , PROBABLY OLD [40+ ms Q WAVE IN V1-V4] ABNORMAL ECG UNCONFIRMED REPORT Electronically signed by : Joe Richter MD 09/25/2022 17:32:43
--- NOTE | 2022-09-25 12:55 | XR_ITS ---
FINAL REPORT CLINICAL HISTORY: soa COMPARISON: None FINDINGS: The patient has had a prior sternotomy. Mild to moderate cardiomegaly is present. There is an opacity in the left mid lung that is worrisome for pneumonia. Follow-up PA and lateral chest x-rays are recommended. IMPRESSION: Prior sternotomy Mild to moderate cardiomegaly with a left mid lung peripheral opacity worrisome for an acute pneumonia. Reviewed, Interpreted and Dictated by Aureliano Scott MD Transcribed by Christi Wilson Authenticated and [facility]
[2022-09-25 13:03] LABS: Chloride 107 mmol/L (98-107); Sodium 143 mmol/L (136-145)
[2022-09-25 13:04] LABS: Basophils # 0.1 K/mm3 (0-0.2); Basophils % 0.7 % (0.1-2.0); Eosinophils # 0.3 K/mm3 (0.0-0.4); Eosinophils % 3.7 % (0.1-12.0); Hematocrit 38.9 % (42.0-52.0); Hemoglobin 12.2 g/dL (14.1-18.0); Lymphocytes # 1.6 K/mm3 (0.7-4.5); Lymphocytes % 17.7 % (10-50); Mean Corpuscular HGB Conc 31.4 g/dL (31.8-35.4); Mean Corpuscular Hemoglobin 27.7 pg (27.0-31.2); Mean Corpuscular Volume 88.3 fl (80-94); Mean Platelet Volume 7.5 fl (7.4-10.4); Monocytes % 11.5 % (1.7-9.3); Neutrophils # 5.8 K/mm3 (1.8-7.8); Neutrophils % 66.6 % (37.0-80.0); Platelet Count 226 K/mm3 (142-424); Potassium 4.3 mmoL/L (3.5-5.1); Red Blood Count 4.41 M/mm3 (4.60-6.20); White Blood Count 8.8 K/mm3 (4.8-10.8)
[2022-09-25 13:06] LABS: Alanine Aminotransferase 20 U/L (12-78); Albumin Level 3.6 g/dl (3.5-5.0); Albumin/Globulin Ratio 1.1 (1.1-1.8); Alkaline Phosphatase 76 U/L (38-126); Anion Gap 15.3 mEq/L (5-15); Aspartate Amino Transferase 23 U/L (17-59); Bilirubin,Total 0.5 mg/dl (0.2-1.3); Blood Urea Nitrogen 59 mg/dl (9-20); Carbon Dioxide 25 mmol/L (22.0-30.0); Creatinine Clearance Estimated 26 mL/min (50-200); Estimated Glomerular Filt Rate 16 ml/min (>60); GFR (African American) 19 ML/MIN (>60); Globulin 3.2 g/dL (1.3-3.2); Total Protein,Serum 6.8 g/dl (6.3-8.2)
[2022-09-25 13:07] LABS: Calcium 8.7 mg/dl (8.4-10.2); Glucose 100 mg/dl (74-100)
--- NOTE | 2022-09-25 13:08 | HMH.EDGENADL ---
Discharge Plan Disposition Patient Disposition: Home, Self-Care Prescriptions Prescriptions: No Action hydrocodone-acetaminophen 10-325 mg tablet 1 tab PO Q6H PRN (Reason: pain) atorvastatin 80 mg tablet 80 mg PO DAILY insulin glargine 100 unit/mL (3 mL) insulin pen 100 unit SUB-Q DAILY glipizide 10 mg tablet 10 mg PO BID aspirin [Adult Low Dose Aspirin] 81 mg tablet,delayed release (DR/EC) 81 mg PO DAILY clopidogrel [Plavix] 75 mg tablet 75 mg PO DAILY Qty: 90 2RF Rx Instructions: take one tablet by mouth once daily carvedilol 25 MG tablet 25 mg PO BID bumetanide [Bumex] 2 mg Tablet 2 mg PO BID cholecalciferol (vitamin D3) [Vitamin D3] 25 mcg (1,000 unit) Capsule 1,000 unit PO ONCE isosorbide mononitrate 120 MG tablet extended release 24 hr 120 mg PO BID Referrals Follow up/Referrals: Provider,Referral, MD [Referring] - See instructions Activity Restrictions/Add. Instructions Additional Instructions/Restrictions: Your kidney function continues to improve is less than for now you have a persistent left-sided pleural effusion but are in no respiratory distress and not requiring any oxygen supplementation please follow-up closely with Dr. Narayanan as instructed and call their clinic on Friday morning that we will see you that day and return with any worsening shortness of breath or respiratory distress. Clinical Impressions Clinical Impression: Pleural effusion, CKD (chronic kidney disease) Discharge ED Provider: Thanh Owusu General Adult HPI General Chief complaint: Shortness of Breath/Dyspnea Stated complaint: SOA Time Seen by Provider: 09/25/22 13:08 Mode of Arrival: Ambulatory Source of Information: Spouse Limitations: No Limitations Description of Symptoms (Recalled from ER Triage Doc. by RN): pt presents to ED c/o increased SOA. per report pt was admitted to [facility] on September 04 for renal failure. per report pt's creatinine was 5. states pt has recently increased his Bumex. pt's abdomen distended. History of Present Illness HPI narrative: Patient is a 77-year-old gentleman recently admitted in second week of August to the [facility] for fluid on his lungs as well as renal failure. His states that his creatinine was at a 10 and is now down to 4. No change to his diuretics around. Patient has had progressively worsening shortness of breath. States that he has PND orthopnea and significant lower extremity swelling and this is just not getting better. [facility] he is followed by Dr. De Paz from a cardiac standpoint. No chest pain no fevers chills or cough. Related Data Home Medications Medication Instructions Recorded Confirmed hydrocodone 10 mg-acetaminophen 1 tab PO Q6H PRN pain 09/24/17 08/21/21 325 mg tablet atorvastatin 80 mg tablet 80 mg PO DAILY Cholesterol 10/14/17 08/21/21 insulin glargine 100 unit/mL (3 100 unit SUB-Q DAILY Diabetes 10/14/17 08/21/21 mL) subcutaneous pen carvedilol 25 mg tablet 25 mg PO BID heart 02/12/18 08/21/21 glipizide 10 mg tablet 10 mg PO BID Diabetes 05/31/20 08/21/21 isosorbide mononitrate 120 mg 120 mg PO BID blood pressure 07/20/20 08/21/21 tablet,extended release 24 hr aspirin 81 mg tablet,delayed 81 mg PO DAILY heart health 07/31/21 08/21/21 release (Adult Low Dose Aspirin) bumetanide 2 mg tablet 2 mg PO BID Fluid 09/25/22 09/25/22 cholecalciferol (vitamin D3) 25 1,000 unit PO ONCE Supplement 09/25/22 09/25/22 mcg (1,000 unit) capsule (Vitamin D3) Previous Rx's Medication Instructions Recorded clopidogrel 75 mg tablet (Plavix) 75 mg PO DAILY thinner #90 tabs 03/30/18 Allergies Allergy/AdvReac Type Severity Reaction Status Date / Time dipyridamole Allergy Intermediate I-RASH Verified 08/21/21 15:36 [From PERSANTINE] [facility] Disclaimer: The information contained in this section may have been updated after the patient was seen, as th
[2022-09-25 13:20] LABS: Troponin I 0.04 ng/ml (0.00-0.034)
--- NOTE | 2022-09-25 13:24 | PC.NURSE ---
NOTHING NEEDED AT THIS TIME, AT BS
[2022-09-25 13:30] LABS: D-Dimer 0.95 ug/mL (0.0-0.5)
[2022-09-25 13:36] LABS: NT Pro Brain Natriuretic Pep. 12000 pg/mL (0-450)
--- NOTE | 2022-09-25 15:04 | PC.NURSE ---
rounded on pt, some soa still present.
--- NOTE | 2022-09-25 15:19 | PC.NURSE ---
RIVERA AT BS
--- NOTE | 2022-09-25 15:24 | PC.NURSE ---
pt up to the bathroom
--- NOTE | 2022-09-25 15:57 | PC.NURSE ---
JOSE BERNAL SPOKE WITH DR. BELCHER
== END 2022-09-25 16:20 | disposition home or self-care (01) ==
PROVIDERS: Emergency Provider Student in an Organized Health Care Education/Training Program; PCP Internal Medicine
DX: J90 Pleural effusion, not elsewhere classified (principal); R06.02 Shortness of breath; R01.1 Cardiac murmur, unspecified; Z87.891 Personal history of nicotine dependence
CPT/HCPCS: 71045; 80053; 83880; 84484; 85025; 85378; 93005; 99285

== ENCOUNTER → 2022-09-30 14:21 | Outpatient (CLI) | payer MEDICARE, OTHER, SELFPAY | PROVIDERS: PCP Internal Medicine; Visit Provider Nurse Practitioner Family | DX: I25.10 Atherosclerotic heart disease of native coronary artery without angina pectoris (principal); I35.0 Nonrheumatic aortic (valve) stenosis; R06.02 Shortness of breath | CPT/HCPCS: 93306 ==

== ENCOUNTER → 2022-10-04 16:59 | Outpatient (CLI) | payer MEDICARE, OTHER, SELFPAY ==
[2022-10-04 17:49] LABS: Chloride 97 mmol/L (98-107)
[2022-10-04 17:50] LABS: Potassium 4.2 mmoL/L (3.5-5.1); Sodium 140 mmol/L (136-145)
[2022-10-04 17:53] LABS: Anion Gap 20.2 mEq/L (5-15); Calcium 8.4 mg/dl (8.4-10.2); Carbon Dioxide 27 mmol/L (22.0-30.0); Estimated Glomerular Filt Rate 12 ml/min (>60); GFR (African American) 14 ML/MIN (>60); Glucose 96 mg/dl (74-100)
[2022-10-04 18:43] LABS: Blood Urea Nitrogen 89 mg/dl (9-20)
== END ==
PROVIDERS: PCP Internal Medicine; Visit Provider Internal Medicine
DX: I50.9 Heart failure, unspecified (principal); N18.9 Chronic kidney disease, unspecified; R60.9 Edema, unspecified
CPT/HCPCS: 80048

== ENCOUNTER → 2023-01-20 18:19 | Outpatient (CLI) | payer MEDICARE, OTHER, SELFPAY | PROVIDERS: PCP Internal Medicine; Visit Provider Internal Medicine | DX: S81.801A Unspecified open wound, right lower leg, initial encounter (principal); B95.7 Other staphylococcus as the cause of diseases classified elsewhere; B96.89 Other specified bacterial agents as the cause of diseases classified elsewhere | CPT/HCPCS: 87070; 87077; 87186; 87205 ==

== ENCOUNTER 2023-02-25 11:00 | Outpatient (RCR) | payer MEDICARE, OTHER, SELFPAY | END 2023-02-25 11:05 | disposition home or self-care (01) | LOC: PT 11:00 | PROVIDERS: PCP Internal Medicine; Visit Provider Internal Medicine | DX: L03.116 Cellulitis of left lower limb (principal); L97.921 Non-pressure chronic ulcer of unspecified part of left lower leg limited to breakdown of skin | CPT/HCPCS: 97140; 97163; 97597 ==

== ENCOUNTER 2023-06-19 08:30 | Day surgery (SDC) | payer MEDICARE, OTHER, SELFPAY ==
[2023-06-19] VITALS (18 sets, daily range): BP systolic 89–112; BP diastolic 49–72; PULSE 60–70; RESP 15–19; TEMP 36.5; O2SAT 90–99; BMI 28.2
--- NOTE | 2023-06-19 07:10 | IR_ITS ---
APPROVED REPORT Patient Location: Outpatient Monitoring Manager: SUNG Herrera RT (R) PROCEDURES Left heart catheterization Left ventriculogram Selective coronary angiogram Left internal mammary angiography Selective engagement of the saphenous vein graft to the right coronary INDICATION Coronary artery disease, History of coronary bypass surgery, Accelerated angina pectoris, Informed consent was obtained prior to the procedure. COMPLICATIONS NONE Estimated Blood Loss: LESS THAN 10 ML TECHNIQUE One percent lidocaine used to anesthetize the right groin. The right femoral artery was accessed via the Seldinger technique and a 5 Danish sheath was placed in the right femoral artery. A JL 4, JR4 catheter were used to perform left heart catheterization, left ventriculogram selective coronary angiography as well as selective engagement of the 1 vein graft and the left internal mammary artery. The saphenous vein graft to the circumflex artery was noted to be ostially occluded at the end of the procedure the patient was transferred to the postop holding area in stable condition for sheath removal. ANGIOGRAPHIC RESULTS The left main artery Is patent The left anterior descending artery Is subtotally occluded in the proximal segment giving off a few small to medium sized septal perforators The circumflex artery Ostially occluded The right coronary artery Dominant with ostial proximal and mid diffuse critical subtotal occlusions all greater than 90% The AL ventriculogram reveals Dilated ventricle ejection fraction 40% The left ventricular end-diastolic pressure Less than 10 mmHg WHEELER to LAD widely patent Saphenous vein graft to posterior descending artery widely patent IMPRESSION Coronary artery disease as described above Reduced ejection fraction Patent WHEELER to LAD Patent saphenous vein graft to posterior sending artery Previously known occluded saphenous vein graft to the circumflex artery PLAN 1. Continue medical management Electronically signed by : Shimon De Paz MD 06/19/2023 11:23:38
[2023-06-19 09:27] LABS: Basophils % 0.4 % (0.1-2.0); Eosinophils # 0.3 K/mm3 (0.0-0.4); Eosinophils % 4.9 % (0.1-12.0); Hematocrit 34.5 % (42.0-52.0); Hemoglobin 11.1 g/dL (14.1-18.0); Lymphocytes # 1.2 K/mm3 (0.7-4.5); Lymphocytes % 20.8 % (10-50); Mean Corpuscular HGB Conc 32.2 g/dL (31.8-35.4); Mean Corpuscular Hemoglobin 32.3 pg (27.0-31.2); Mean Corpuscular Volume 100.3 fl (80-94); Mean Platelet Volume 7.7 fl (7.4-10.4); Monocytes # 0.6 K/mm3 (0.1-1.0); Neutrophils # 3.7 K/mm3 (1.8-7.8); Neutrophils % 63.8 % (37.0-80.0); Platelet Count 163 K/mm3 (142-424); Red Blood Count 3.44 M/mm3 (4.60-6.20); Red Cell Distribution Width 14.5 % (11.5-17.5); White Blood Count 5.8 K/mm3 (4.8-10.8)
[2023-06-19 09:36] LABS: Anion Gap 13.7 mEq/L (5-15); Blood Urea Nitrogen 32 mg/dl (9-20); Calcium 8.4 mg/dl (8.4-10.2); Carbon Dioxide 25 mmol/L (22.0-30.0); Chloride 104 mmol/L (98-107); Creatinine Clearance Estimated 14 mL/min (50-200); Estimated Glomerular Filt Rate 10 ml/min (>60); GFR (African American) 13 ML/MIN (>60); Glucose 114 mg/dl (74-100); Potassium 3.7 mmoL/L (3.5-5.1); Sodium 139 mmol/L (136-145)
[2023-06-19] MEDS: HEPARIN 1,000 UNITS/500ML NS (CATH LAB) 3000 UNIT IV (10:58)
[2023-06-19] MEDS: LIDOCAINE 1% 10ML MDV 20 ML IJ (10:58)
[2023-06-19] MEDS: diphenhydrAMINE 50MG/ML VIAL 50 MG IV (10:58)
[2023-06-19] MEDS: 0.9 % SODIUM CHLORIDE 500 ML 25 ML IV (10:58)
[2023-06-19] MEDS: FENTANYL 100MCG/2ML VIAL 50 MCG IV (11:23)
[2023-06-19] MEDS: MIDAZOLAM HCL 1MG/1ML 5ML VIAL 1 MG IV (11:23)
[2023-06-19] MEDS: IOPAMIDOL-370 (76%);100ML BOTTLE 50 ML IV (11:29)
== END 2023-06-19 14:44 | disposition home or self-care (01) ==
PROVIDERS: PCP Internal Medicine; Visit Provider Internal Medicine
DX: I25.118 Atherosclerotic heart disease of native coronary artery with other forms of angina pectoris; R06.02 Shortness of breath; Z95.1 Presence of aortocoronary bypass graft
CPT/HCPCS: 80048; 85025; 93459; 99152; C1725; C1769; C1894; J1644; Q9967

== ENCOUNTER 2023-08-20 13:53 | Outpatient (CLI) | payer MEDICARE, OTHER, SELFPAY | END 2023-08-20 23:59 | disposition home or self-care (01) | LOC: RT 13:56 | PROVIDERS: PCP Internal Medicine; Visit Provider Nurse Practitioner | DX: R42 Dizziness and giddiness (principal) | CPT/HCPCS: 93270 ==

== ENCOUNTER 2023-08-28 09:21 | Outpatient (CLI) | payer MEDICARE, OTHER, SELFPAY ==
--- NOTE | 2023-08-28 09:30 | CA_ITS ---
FINAL REPORT CLINICAL HISTORY: BAMBI, Blurred vision, H/o Right ICA stenting COMPARISON: None FINDINGS: RIGHT CAROTID: CCA PSV -53 cm/sec ICA PSV -147 cm/sec ICA/CCA PSV ratio -2.76. Comments: An internal carotid artery stent is present. Grayscale images show significant plaque in the distal common carotid artery. LEFTCAROTID: CCA PSV -126. cm/sec ICA PSV -126. cm/sec ICA/CCA PSV ratio -1.14. Comments: Mild to moderate plaque disease is noted. Antegrade flow is seen within the vertebral arteries. IMPRESSION: Right internal carotid artery stent present. Grayscale images show significant plaque in the distal common carotid artery. Although the velocities and ratios indicate less than 50% stenosis, would recommend CTA for further evaluation. Less than 50% stenosis left carotid artery. Reviewed, Interpreted and Dictated by Tamara Herrera MD Transcribed by Christi Wilson Authenticated and [facility]
== END 2023-08-28 23:59 | disposition home or self-care (01) ==
LOC: RT 09:22
PROVIDERS: PCP Internal Medicine; Visit Provider Nurse Practitioner
DX: R42 Dizziness and giddiness (principal); I65.29 Occlusion and stenosis of unspecified carotid artery; T82.855A Stenosis of coronary artery stent, initial encounter
CPT/HCPCS: 93880

== ENCOUNTER 2023-10-09 07:53 | Outpatient (CLI) | payer MEDICARE, OTHER, SELFPAY ==
--- NOTE | 2023-10-09 07:53 | CT_ITS ---
FINAL REPORT TECHNIQUE: Thin-section axial CT with IV contrast supplemented with multi planar reconstruction under CT angiogram protocol was performed of the neck. This study was performed technique to keep radiation doses as low as reasonably achievable, (ALARA). NASCET criteria was utilized during interpretation. CLINICAL HISTORY: carotid disease COMPARISON: None FINDINGS: Aortic arch: Arch shows no significant narrowing. Great vessel origins are widely patent. Right carotid: A right carotid artery stent is patent. There is no evidence of significant right common or internal carotid artery stenosis. Left carotid: There is 50% stenosis of a short segment of the left common carotid artery. Calcified plaque is present in the left carotid bifurcation, producing mild less than 50% luminal diameter stenosis of the left carotid bulb. Vertebrals: Left vertebral artery is dominant. No significant stenosis is present. The exam was extended into the head, and no significant stenosis is noted in the intracranial vessels. There is moderate to severe degenerative change of the cervical spine with multilevel osteophytes. In the left lung apex there is a presumed loculated effusion partially visualized. IMPRESSION: Right carotid artery stent is patent. 50% stenosis of the short segment of the left common carotid artery. Calcified plaque is present in the left carotid bifurcation producing mild less than 50% luminal diameter stenosis of the left carotid bulb. Moderate to severe cervical spine degenerative change with multilevel osteophytes. Presumed loculated effusion in the left lung apex partially visualized. Reviewed, Interpreted and Dictated by Good Craig III, MD Transcribed by Christi Wilson Authenticated and [facility]
--- NOTE | 2023-10-09 08:24 | CA_ITS ---
APPROVED REPORT EXAM: Comprehensive 2D, Doppler, and color-flow Echocardiogram Supervisor Production Managing: Gisela Denise CRT Ht: 5 ft 9 in Wt: 190lbs BSA: 2.02 BP: 128/57 mmHg Indications: Atrial Fibrillation Chest Pain, Murmur, Shortness of Breath, Atrial Fibrillation, Diabetes, Hyperlipidemia, Hypertension/HDD. JM, GIOVANI, PAD, CABG, BAMBI, MOD , EF 45-50% 09/30/22 2D Dimensions LVOT 2.10 cm (M/F) 1.5-2.5 LA Volume 67.20 mL LA Volume Index 33.27 mL/m2 (M/F) 16-34 M-Mode Dimensions RVDd 2.98 cm (0.9-2.6) LA Diam 5.58 cm (1.9-4.0) LVDd 6.08 cm (3.5-5.7) LVDs 4.62 cm (3.5-5.7) IVSd 1.53 cm (0.6-1.1) PWd 0.92 cm (0.6-1.1) EF (Teich) 47.00% FS 24.00% EDV (Teich) 185.50 mL TAPSE 1.12 (<1.7) ESV (Teich) 98.30 mL LV Diastology E Decel Time 150 (160-240 msec) E/A Ratio 1.8 MED A' 5.30 cm/s LAT A' 3.60 cm/s Aortic Valve PRIYA Index 0.50 cm2/m2 AoV Peak Gordon. 275.0 (50-130 cm/s) AO Peak GR. 30.40 mmHg AO Mean GR. 18.40 (<5 mmHg) AO VTI 60.1 (18-25 cm) PRIYA (VTI) 1.03 (2.5-4.5 cm2) Mitral Valve MV E Max Gordon. 127.0 (40-130 cm/s) MV A Velocity 69.0 (40-130 cm/s) E/A Ratio 1.84 MV PHT 44.0 ms Pulmonary Valve PV Peak Velocity 274.0 (50-150 cm/s) Tricuspid Valve TR P. Velocity 274.00 cm/s RAP Estimate 10.00 mmHg RVSP 40.00 mmHg Left Ventricle The left ventricle is normal size. The left ventricular systolic function is low-normal. There is increased LV wall thickness. There is normal LV segmental wall motion. Diastolic function is indeterminate. LVEF is 50%. Right Ventricle The right ventricle is normal size. The right ventricular systolic function is normal. Atria Left atrium is mildly dilated. Right atrium is mildly dilated. There is no Doppler evidence of interatrial shunt. Aortic Valve The aortic valve is moderately thickened. Moderate valvular aortic stenosis. Peak velocity 3.3 m/s. Mean AV gradient 20 mmHg. Max AV gradient 44 mmHg. SVi=52 ml/m2. PRIYA 1.3 cm2. Mild aortic regurgitation. Mitral Valve Mild mitral annular calcification. The mitral valve leaflets are mildly thickened. No evidence of mitral valve stenosis. At least moderate mitral regurgitation is present. There are 2 mitral valve jets, both of which are eccentric. 1 jet is posteriorly directed, and the other is anteriorly directed. Tricuspid Valve The tricuspid valve leaflets are thin and pliable. Mild mitral regurgitation. RVSP is 25-30 mmHg. Pulmonic Valve The pulmonary valve is normal in structure. Mild pulmonic regurgitation. Great Vessels The aortic root is normal in size. The ascending aorta is normal in size. IVC is normal in size and collapses >50% with inspiration. Pericardium There is no pericardial effusion. Other Information Study Quality: Fair Conclusion Low-normal LV systolic function (LVEF 50%). Mild biatrial dilation. Moderate . Peak velocity 3.3 m/s. Mean AV gradient 20 mmHg. Max AV gradient 44 mmHg. SVi=52 ml/m2. PRIYA 1.3 cm2. At least moderate MR. There are 2 mitral valve jets, both of which are eccentric. 1 jet is posteriorly directed, and the other is anteriorly directed. Mild AI, mild TR, mild PI. In the setting of persistent symptoms, moderate , and at least moderate MR, further evaluation with TARYN is recommended to evaluate the mechanism and true severity of the underlying valvulopathies. Electronically signed by : Sharona Russell MD 10/13/2023 12:46:59
[2023-10-09 08:48] LABS: Blood Urea Nitrogen 28 mg/dl (9-20); Estimated Glomerular Filt Rate 11 ml/min (>60); GFR (African American) 13 ML/MIN (>60)
[2023-10-09] MEDS: SODIUM CHLORIDE 0.9% 10ML SYR (RAD ONLY) 10 ML IV (09:14)
[2023-10-09] MEDS: IOPAMIDOL-370 (76%);100ML BOTTLE 100 ML IV (09:14)
[2023-10-09] MEDS: 0.9 % SODIUM CHLORIDE 50 ML VIAL IV (09:14)
== END 2023-10-09 23:59 | disposition home or self-care (01) ==
LOC: RAD 07:53
PROVIDERS: PCP Internal Medicine; Visit Provider Nurse Practitioner
DX: I65.23 Occlusion and stenosis of bilateral carotid arteries (principal); I35.0 Nonrheumatic aortic (valve) stenosis; Z87.891 Personal history of nicotine dependence
CPT/HCPCS: 36415; 70498; 82565; 84520; 93306; Q9967

== ENCOUNTER 2023-11-06 10:22 | Day surgery (SDC) | payer MEDICARE, OTHER, SELFPAY ==
[2023-11-06] VITALS (10 sets, daily range): BP systolic 106–131; BP diastolic 65–73; PULSE 74–85; RESP 15–18; TEMP 36.6–36.7; O2SAT 92–97; BMI 28.3
--- NOTE | 2023-11-06 07:07 | IR_ITS ---
APPROVED REPORT Patient Location: Outpatient PROCEDURES 1. Pocket formation for biventricular pacemaker generator with cardiac resynchronization therapy. 2. Placement of atrial sensing and pacing lead into the right atrial appendage. 3. Placement of a right ventricular sensing, pacing lead in the right ventricular apex. 4. Placement of left ventricular sensing pacing lead via the coronary sinus. 5. Permanent cardiac resynchronization therapy with biventricular pacemaker. INDICATION Ejection fraction 50% or less, Second and third-degree heart block, Greater than 20-40% anticipated RV pacing Informed consent was obtained prior to the procedure. COMPLICATIONS NONE Estimated Blood Loss: LESS THAN 10 ML TECHNIQUE 1% Lidocaine with epinephrine used to anesthetized the left anterior aspect of the chest. Scalpel was used to make the initial cutaneous incision while electrocautery was used to dissect down tinto the fascia. The fascia was lifted off the pectoralis muscle and digitally manipulated creating a pocket for the pacemaker. The patient was then placed in Trendelenburg position and the subclavian vein was accessed three times via the Selinger technique, there are three wires in the vein. A 9.5 Nicaraguan sheath and dilator was then placed over one of the wires while keeping the other two wires in place within the subclavian vein. The dilator was removed from the sheath. Using fluoroscopic guidance, contrast was used to visualize the coronary sinus, the left ventricular lead was placed into the coronary sinus. Electronic interrogation proved acceptable thresholds and voltage within the lead. Using 3-0 silk, the left ventricular lead was then secured into place and sheath peeled away. A 6 Nicaraguan sheath was placed under fluoroscopic guidance into the subclavian vein over one of the wires while keeping the other wire in place within the subclavian vein. The dilator was removed from the sheath. Using fluoroscopic guidance, the ventricular lead was placed into the right ventricular apex, screwed and secured into place. Electronic interrogation proved acceptable thresholds and voltage within the lead. Using 3-0 silk, the ventricular lead was then secured into place. Lead was secured to the facia using the 3-0 silk. Following this, the sheath was pealed away. An additional 6 Nicaraguan fresh sheath and dilator was placed over the existing wire. Using fluoroscopic guidance, the atrial lead was the placed into the right atrial appendage and screwed and secured in place. Electrical interrogation demonstrated acceptable thresholds and voltage number. The atrial lead was then secured into place using 3-0 silk. 1 gram of Ancef was used to flush the pocket. Following the pacemaker generator being secured to the fascia and in place, Monocryl was used to close the subcutaneous layers while mckenna were used to close the cutaneous layer. A pressure dressing was placed and the patient was transferred to the postop holding area in stable condition for postoperative care. INTERROGATION Generator Model number: Generator Serial number: Atrial lead model number: Atrial lead serial number: P-wave: Impedance: Threshold: Right Ventricular lead model number: Right Ventricular lead serial number: R-wave: Impedance: Threshold: Left Ventricular lead model number: Left Ventricular lead serial number: R-wave: Impedance: Threshold: Pacing Parameters: Mode: DDDR Base/Max Track:60 ppm / 130 ppm No diaphragmatic stimulation at 10 volts. IMPRESSION 1. Successful Pocket formation for biventricular pacemaker generator with cardiac resynchronization therapy. 2. Successful Placement of atrial sensing and pacing lead into the right atrial appendage. 3. Successful Placement of a right ventricular sensing, pacing lead in the right ventricular apex. 4. Successful Placement of left ventricular sensing pacing lead via the coronary sinus. 5. Successful Permanent cardiac resynchronization therapy with biventricular pacemaker. PLAN 1. Postop wound care. Electronically signed by : Shimon De Paz MD 11/07/2023 12:18:18
[2023-11-06 10:43] LABS: Basophils # 0.1 K/mm3 (0-0.2); Basophils % 1.1 % (0.1-2.0); Eosinophils # 0.2 K/mm3 (0.0-0.4); Eosinophils % 5.4 % (0.1-12.0); Hematocrit 37.6 % (42.0-52.0); Hemoglobin 11.7 g/dL (14.1-18.0); Lymphocytes # 0.9 K/mm3 (0.7-4.5); Lymphocytes % 20.5 % (10-50); Mean Corpuscular HGB Conc 31.3 g/dL (31.8-35.4); Mean Corpuscular Hemoglobin 32.5 pg (27.0-31.2); Mean Corpuscular Volume 103.8 fl (80-94); Mean Platelet Volume 8.6 fl (7.4-10.4); Monocytes # 0.5 K/mm3 (0.1-1.0); Monocytes % 10.5 % (1.7-9.3); Neutrophils # 2.8 K/mm3 (1.8-7.8); Neutrophils % 62.5 % (37.0-80.0); Platelet Count 154 K/mm3 (142-424); Red Blood Count 3.62 M/mm3 (4.60-6.20); White Blood Count 4.5 K/mm3 (4.8-10.8)
[2023-11-06 10:49] LABS: Chloride 103 mmol/L (98-107); Potassium 4.1 mmoL/L (3.5-5.1); Sodium 139 mmol/L (136-145)
[2023-11-06 10:52] LABS: Blood Urea Nitrogen 28 mg/dl (9-20); Estimated Glomerular Filt Rate 10 ml/min (>60); GFR (African American) 12 ML/MIN (>60)
[2023-11-06 10:53] LABS: Anion Gap 11.1 mEq/L (5-15); Calcium 8.5 mg/dl (8.4-10.2); Carbon Dioxide 29 mmol/L (22.0-30.0); Glucose 105 mg/dl (74-100)
--- NOTE | 2023-11-06 11:42 | SUR.PREOP ---
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 Pt states he took 2 sublingual nitros and it did relieve his chest pain. Notified .
--- NOTE | 2023-11-06 11:57 | P.PNANES_ITS ---
[facility] Disclaimer: The information contained in this section may have been updated after the patient was seen, as this information can be updated by other users. Medical History Typical angina Aortic stenosis Angina pectoris Renal artery stenosis SOB (shortness of breath) on exertion Chest pain CKD (chronic kidney disease) Abdominal bruit Heart murmur Carotid artery stenosis Former heavy tobacco smoker Lung mass Pulmonary hypertension PVD (peripheral vascular disease) Congestive heart failure (CHF) GIOVANI (obstructive sleep apnea) Coronary artery disease PAD (peripheral artery disease) Diabetes mellitus Hyperlipidemia Hypertensive heart disease Surgical History Hx of CABG Social History Smoking Status: Former smoker tobacco type: cigarettes second hand exposure: No alcohol intake: never counseling provided: none substance use type: denies use current occupational status: retired Travel in the last 8 weeks: None household members: spouse housing: house current occupational exposures/hazards: No caffeine: No [facility] Anesthesia Checklist Patient Identification Patient Identification: Arm Band Structural Data Admitted From: Home Planned Operative Procedure/s: Dual chamber pacemaker placement Consent for Planned Operative Procedure(s) Verified: Yes Verified Documents: Surgical Consent and History and Physical NPO Status Verified Time NPO: 00:00 Chart Verification Results Verified: CBC and BMP Additional verifications Anesthesia Reactions: No Airway Assessment Mallampati Score:: Class II C-Spine Mobility Assessed: Yes TMJ Mobility Assessed: Yes Dentition: Dentures-good fit (Glued in. Patient understands risk of damage in case airway insertion. Patient verbalizes understanding and wishes to proceed) Neurological Assessment Level of Consciousness: Awake Hx Seizures: No Numbness or tingling in extremities: No Anesthesia Plan Anesthesia Risk discussed: Yes Anesthesia Plan: Verified ASA Class: IV Anesthesia Type: MAC
[2023-11-06] MEDS: 0.9 % SODIUM CHLORIDE 1000ML 1,000 ML 25 ML IV (13:25)
[2023-11-06] MEDS: CEFAZOLIN SODIUM 1 GM in 0.9 % SODIUM CHLORIDE 50 ML IV (13:25)
[2023-11-06] MEDS: LIDOCAINE 1% W/EPI 1:100,000 20ML VIAL 20 ML SQ (13:26)
[2023-11-06] MEDS: CEFAZOLIN 1GM VIAL 1 GM TP (14:43)
--- NOTE | 2023-11-06 14:51 | XR_ITS ---
FINAL REPORT CLINICAL HISTORY: post pacemaker COMPARISON: 09/25/2022 FINDINGS: A single portable view of the chest was obtained. Cardiomegaly is present. The patient has undergone a prior midline sternotomy. There is a new left subclavian pacer when compared to the prior exam. Mild pulmonary vascular congestion is noted. There is a small to moderate left pleural effusion, which is stable when compared to the prior exam. No evidence of pneumothorax is seen. The mediastinum is within normal limits. There are increased left base opacities when compared to the prior exam, atelectasis versus pneumonia. The bony thorax is intact. IMPRESSION: Interval pacemaker placement has been performed, no evidence of pneumothorax is seen. Cardiomegaly and mild pulmonary vascular congestion with a small to moderate size left pleural effusion, stable. Increased left base opacities when compared to the prior exam, atelectasis versus pneumonia. Reviewed, Interpreted and Dictated by Good Craig III, MD Transcribed by Christi Wilson Authenticated and [facility]
--- NOTE | 2023-11-06 14:54 | SUR.PHASEII ---
radiology at bedside.
[2023-11-06] MEDS: IOPAMIDOL-370 (76%);100ML BOTTLE 30 ML IV (15:46)
--- NOTE | 2023-11-06 16:16 | SUR.PHASEII ---
radiology called regarding chest xray read.
== END 2023-11-06 16:39 | disposition home or self-care (01) ==
LOC: CATHLAB 10:23
PROVIDERS: PCP Internal Medicine; Visit Provider Internal Medicine
DX: I48.0 Paroxysmal atrial fibrillation (principal); I44.2 Atrioventricular block, complete; I35.0 Nonrheumatic aortic (valve) stenosis; I11.0 Hypertensive heart disease with heart failure; I50.22 Chronic systolic (congestive) heart failure; E11.8 Type 2 diabetes mellitus with unspecified complications; G47.33 Obstructive sleep apnea (adult) (pediatric); E78.2 Mixed hyperlipidemia; I25.118 Atherosclerotic heart disease of native coronary artery with other forms of angina pectoris; I73.9 Peripheral vascular disease, unspecified; Z95.1 Presence of aortocoronary bypass graft; I65.23 Occlusion and stenosis of bilateral carotid arteries; Z79.899 Other long term (current) drug therapy; Z79.01 Long term (current) use of anticoagulants; I70.1 Atherosclerosis of renal artery; I27.20 Pulmonary hypertension, unspecified; Z95.828 Presence of other vascular implants and grafts
CPT/HCPCS: 33208; 33225; 36415; 71045; 80048; 85025; C1769; C1898; C1900; C2621; J2704; Q9967

== ENCOUNTER 2023-11-12 13:00 | Outpatient (CLI) | payer MEDICARE, OTHER, SELFPAY ==
--- NOTE | 2023-11-12 13:03 | XR_ITS ---
FINAL REPORT CLINICAL HISTORY: pleural effusion SOA COMPARISON: 11/06/2023 FINDINGS: PA and lateral views of the chest are obtained. There is evidence of a prior midline sternotomy. The cardiac and mediastinal silhouettes are stable in appearance.. There is a left upper lobe opacity and small left effusion which are stable. No evidence of pneumothorax is seen. Surgical mckenna are noted once again overlying the left upper thorax. The left-sided pacemaker is stable in appearance. IMPRESSION: Left upper lobe opacity and small left pleural effusion are stable. Reviewed, Interpreted and Dictated by Shira Low MD Transcribed by Christi Wilson Authenticated and [facility]
== END 2023-11-12 23:59 | disposition home or self-care (01) ==
LOC: RAD 13:03
PROVIDERS: PCP Internal Medicine; Visit Provider Physician Assistant
DX: J90 Pleural effusion, not elsewhere classified (principal); Z87.891 Personal history of nicotine dependence
CPT/HCPCS: 71046

== ENCOUNTER 2023-12-04 19:33 | Emergency (ER) | payer MEDICARE, OTHER, SELFPAY ==
[2023-12-04] VITALS (22 sets, daily range): BP systolic 88–112; BP diastolic 6–74; PULSE 62–97; RESP 16–20; TEMP 36.6; O2SAT 95–100; BMI 27.6
--- NOTE | 2023-12-04 19:54 | PC.NURSE ---
Attempted to establish an IV on patient but was unsuccessful, blood work was sent to lab.
[2023-12-04 20:01] LABS: Basophils % 0.4 % (0.1-2.0); Eosinophils # 0.1 K/mm3 (0.0-0.4); Eosinophils % 0.6 % (0.1-12.0); Hematocrit 38.5 % (42.0-52.0); Hemoglobin 12.1 g/dL (14.1-18.0); Lymphocytes # 0.8 K/mm3 (0.7-4.5); Lymphocytes % 8.4 % (10-50); Mean Corpuscular HGB Conc 31.4 g/dL (31.8-35.4); Mean Corpuscular Hemoglobin 32.9 pg (27.0-31.2); Mean Corpuscular Volume 104.6 fl (80-94); Mean Platelet Volume 8.3 fl (7.4-10.4); Monocytes # 0.9 K/mm3 (0.1-1.0); Monocytes % 9.5 % (1.7-9.3); Neutrophils # 7.4 K/mm3 (1.8-7.8); Platelet Count 133 K/mm3 (142-424); Red Blood Count 3.69 M/mm3 (4.60-6.20); Red Cell Distribution Width 15.2 % (11.5-17.5); White Blood Count 9.2 K/mm3 (4.8-10.8)
[2023-12-04 20:07] LABS: VBG Base Excess 0.2 mmol/L (-2.4-2.3); VBG HCO3 25.9 mmol/L (23-30); VBG Oxygen Saturation 63.1 % (50-70); VBG PCO2 49.2 mmol/L (35-51); VBG PH 7.34 mmol/L (7.31-7.41); VBG PO2 36.7 mmol/L (28-40); VBG Total CO2 27.5 mmol/L (23-27)
[2023-12-04 20:08] LABS: Lactate Venous 2.2 mmol/L (0.4-2.0)
[2023-12-04 20:14] LABS: Magnesium 1.8 mg/dl (1.6-2.3); Phosphorous 5.9 mg/dl (2.5-4.5)
[2023-12-04 20:39] LABS: Erythrocyte Sedimentation Rate 86 mm/hr (0-20)
--- NOTE | 2023-12-04 20:43 | PC.NURSE ---
Pt has sleep apnea, O2 dropping to 89% with rest, 2l/nc applied
[2023-12-04 21:28] LABS: D-Dimer 0.69 ug/mL (0.0-0.5)
[2023-12-04 21:29] LABS: C-Reactive Protein 101.5 mg/L (0-4)
--- NOTE | 2023-12-04 21:40 | ED_ITS ---
Discharge Plan Disposition Patient Disposition: Home, Self-Care Condition: Good Prescriptions Prescriptions: No Action tizanidine 2 mg tablet 2 mg PO Q8H PRN (Reason: Muscle Spasm) Patient Comments: TAKE 1 TO 2 TABLETS BY MOUTH EVERY 8 HOURS clopidogrel [Plavix] 75 mg tablet 75 mg PO DAILY Qty: 30 2RF isosorbide mononitrate 60 mg tablet extended release 24 hr 60 mg PO .COMPLEX Rx Instructions: 60 mg orally 1/2 tab twice daily; triamcinolone acetonide 0.1 % cream 1 applic topical TID PRN (Reason: Leg rash) Qty: 80 3RF atorvastatin 80 mg tablet 80 mg PO DAILY bisoprolol fumarate 5 mg tablet 2.5 mg PO DAILY Qty: 90 1RF Eliquis 5 mg tablet 5 mg PO BID cephalexin 500 mg capsule 500 mg PO BID Qty: 20 1RF Rx Instructions: Dose after dialysis nitroglycerin 0.4 mg tablet, sublingual See Rx Instructions .ROUTE .COMPLEX Qty: 25 7RF Dose Instruction: PLACE 1 TABLET UNDER THE TONGUE NEEDED FOR CHEST PAIN Rx Instructions: PLACE 1 TABLET UNDER THE TONGUE NEEDED FOR CHEST PAIN hydrocodone-acetaminophen 10-325 mg tablet 1 tab PO Q6H PRN (Reason: pain) Qty: 120 0RF cholecalciferol (vitamin D3) [Vitamin D3] 25 mcg (1,000 unit) Capsule 1,000 unit PO ONCE Referrals Follow up/Referrals: Yordy Narayanan MD [Primary Care Provider] - See instructions Activity Restrictions/Add. Instructions Additional Instructions/Restrictions: You were evaluated in the emergency department today. You were given a strong dose of IV antibiotics here which is typically used as a one-time dose for treatment. We are not sending you home with antibiotics because of this. We have given you an order for an outpatient DVT ultrasound to rule out any blood clot in your leg. It is important that you follow-up for this. I also recommend close follow-up with your primary care provider. Please continue with dialysis tomorrow as scheduled. Return to the emergency department right away for new or worsening symptoms. Clinical Impressions Clinical Impression: Cellulitis of left leg Instructions Patient Instructions: DI for Cellulitis -- Adult, DI for Dependent Edema, DI for Peripheral Edema -- Bilateral Print Language Print Language: Maori Discharge ED Provider: Rosa Peace General Adult HPI General Chief complaint: Extremity Problem,Nontraumatic Stated complaint: bilateral leg swelling Time Seen by Provider: 12/04/23 19:53 Mode of Arrival: Wheelchair Source of Information: Patient and Significant Other Limitations: Physical Limitations Description of Symptoms (Recalled from ER Triage Doc. by RN): Pt. presented to the ED with c/o bilateral swelling of legs and severe pain. Left leg worse than right leg. Pt. is on dialysis. Pt. has blisters on both lower legs that were debrided yesterday. History of Present Illness HPI narrative: This patient is a 78-year-old male with a history of chronic venous insufficiency, bullous ulcers on his lower extremities, type 2 diabetes, end- stage renal disease on Friday dialysis, PAD, CAD, hypertension, hyperlipidemia presenting to the emergency department for evaluation with concern for significant increase in swelling of his left lower extremity as well as redness and warmth. He always has lower extremity swelling at baseline, but its gotten much worse in his left leg since he was evaluated 2 days ago by primary care and had bullous lesions drained. No fevers, chills, or other systemic symptoms, but he just states that he does not feel great. He has been doing Hibiclens soaks at home. He is not compliant with keeping his legs elevated. No other concerns noted, such as chest pain or shortness of breath. He had dialysis on Friday and is due again tomorrow. He gets dialysis in [place]. Related Data Home Medications ?Medication ?Instructions ?Recorded ?Confirmed atorvastatin 80 mg tablet 80 mg PO DAILY Cholesterol 10/14/17 12/02/23 cholecalciferol (vitamin D3) 25 1,000 unit PO ONCE Supplement 09/25/22 12/02/23 mcg (1,000 unit) capsule (Vitamin D3) tizanidine 2 mg tablet 2 mg PO Q8H PRN Muscle Spasm 11/05/22 12/02/23 isosorbide mononitrate 60 mg 60 mg PO .COMPLEX 10/21/23 12/02/23 tablet,extended release 24 hr apixaban 5 mg tablet (Eliquis) 5 mg PO BID 11/18/23 12/02/23 Previous Rx's ?Medication ?Instructions ?Recorded bisoprolol fumarate 5 mg tablet 2.5 mg (1/2 x 5 mg) PO DAILY #90 06/26/23 tabs clopidogrel 75 mg tablet (Plavix) 75 mg PO DAILY #30 tabs 09/18/23 triamcinolone acetonide 0.1 % 1 applic topical TID PRN Leg rash 10/22/23 topical cream #80 grams nitroglycerin 0.4 mg sublingual See Rx Instructions .Route 10/30/23 tablet .COMPLEX #25 tabs hydrocodone 10 mg-acetaminophen 1 tab PO Q6H PRN pain #120 tabs 11/06/23 325 mg tablet cephalexin 500 mg capsule 500 mg PO BID #20 caps 12/02/23 Allergies Allergy/AdvReac Type Severity Reaction Status Date / Time dipyridamole Allergy Intermediate I-RASH Verified 12/02/23 16:01 [From PERSANTINE] [facility] Disclaimer: The information contained in this section may have been updated after the patient was seen, as this information can be updated by other users. Medical History Pacemaker Typical angina Aortic stenosis Angina pectoris Renal artery stenosis SOB (shortness of breath) on exertion Chest pain CKD (chronic kidney disease) Abdominal bruit Heart murmur Carotid artery stenosis Former heavy tobacco smoker Lung mass Pulmonary hypertension PVD (peripheral vascular disease) Congestive heart failure (CHF) GIOVANI (obstructive sleep apnea) Coronary artery disease PAD (peripheral artery disease) Diabetes mellitus Hyperlipidemia Hypertensive heart disease Surgical History Hx of CABG Social History Smoking Status: Never smoker second hand exposure: No alcohol intake: never counseling provided: none substance use type: denies use current occupational status: retired Travel in the last 8 weeks: None household members: spouse housing: house current occupational exposures/hazards: No caffeine: No ROS Obtained: Yes All systems reviewed & no additional complaints except as documented Physical Exam General General appearance: alert and in no apparent distress Head Head exam: atraumatic and normocephalic Eye Eye exam: Present normal appearance, PERRL and EOMI ENT ENT exam: Present normal exam, normal oropharynx, mucous membranes moist and normal external ear exam Neck Neck exam: Present normal inspection, full ROM and trachea midline; Absent tenderness Chest Chest inspection: Present normal inspection and symmetric chest wall rise; Absent tenderness Respiratory Respiratory exam: Present normal lung sounds bilaterally; Absent respiratory distress, wheezes, stridor or accessory muscle use Cardiovascular Cardiovascular exam: Present regular rate and normal rhythm Abdominal Exam Abdominal exam: Present soft; Absent distention, tenderness or guarding Extremities Exam Extremities exam: Present full ROM, normal capillary refill, edema and other (Left greater than right lower extremity edema. Left lower extremity is erythematous, warm. He has ulcerative lesions on both lower extremities); Absent tenderness Back Exam Back exam: Present normal inspection and full ROM; Absent tenderness Neurological Exam Neurological exam: Present alert, oriented X3, CN II-XII intact and normal gait; Absent motor sensory deficit Psychiatric Psychiatric exam: Present normal affect and normal mood Skin Skin exam: Present warm and dry Medical Decision Making Medical Records Medical records reviewed: Yes I reviewed the patient's medical records. Werner Inquiry Pt receiving controlled substance: No Vital Signs: 12/04/23 19:34 12/04/23 20:10 12/04/23 20:20 Temperature 97.8 F Temperature Source Oral Pulse Rate 89 89 Pulse Rate [Right] 62 Respiratory Rate 20 Blood Pressure 90/56 L 93/54 L Blood Pressure [Right Arm] 93/61 L Blood Pressure Mean 64 61 Blood Pressure Mean [Right Arm] 71 Blood Pressure Source Blood Pressure Source [Right Arm] Automatic Cuff Blood Pressure Position Blood Pressure Position [Right Arm] Sitting 02 Sat by Pulse Oximetry 97 95 95 Oxygen Delivery Method Room Air Room Air Room Air 12/04/23 20:30 12/04/23 20:40 12/04/23 20:50 Temperature Temperature Source Pulse Rate 87 85 83 Pulse Rate [Right] Respiratory Rate Blood Pressure 88/53 L 89/52 L 98/54 L Blood Pressure [Right Arm] Blood Pressure Mean 61 59 68 Blood Pressure Mean [Right Arm] Blood Pressure Source Blood Pressure Source [Right Arm] Blood Pressure Position Blood Pressure Position [Right Arm] 02 Sat by Pulse Oximetry 95 95 100 Oxygen Delivery Method Room Air Room Air Room Air 12/04/23 21:00 12/04/23 21:10 12/04/23 21:20 Temperature Temperature Source Pulse Rate 84 80 83 Pulse Rate [Right] Respiratory Rate 18 Blood Pressure 91/56 L 95/63 L 96/58 L Blood Pressure [Right Arm] Blood Pressure Mean 63 70 65 Blood Pressure Mean [Right Arm] Blood Pressure Source Blood Pressure Source [Right Arm] Blood Pressure Position Blood Pressure Position [Right Arm] 02 Sat by Pulse Oximetry 100 100 100 Oxygen Delivery Method Room Air Room Air 12/04/23 21:30 12/04/23 21:40 12/04/23 21:50 Temperature Temperature Source Pulse Rate 84 81 82 Pulse Rate [Right] Respiratory Rate 18 20 16 Blood Pressure 91/57 L 97/62 L 91/62 L Blood Pressure [Right Arm] Blood Pressure Mean 64 73 69 Blood Pressure Mean [Right Arm] Blood Pressure Source Blood Pressure Source [Right Arm] Blood Pressure Position Blood Pressure Position [Right Arm] 02 Sat by Pulse Oximetry 100 100 100 Oxygen Delivery Method 12/04/23 22:00 12/04/23 22:10 12/04/23 22:20 Temperature Temperature Source Pulse Rate 84 82 97 H Pulse Rate [Right] Respiratory Rate 16 18 18 Blood Pressure 99/57 L 103/64 L 111/62 Blood Pressure [Right Arm] Blood Pressure Mean 75 75 68 Blood Pressure Mean [Right Arm] Blood Pressure Source Blood Pressure Source [Right Arm] Blood Pressure Position Blood Pressure Position [Right Arm] 02 Sat by Pulse Oximetry 100 100 100 Oxygen Delivery Method 12/04/23 22:30 12/04/23 22:40 12/04/23 22:50 Temperature Temperature Source Pulse Rate 84 81 84 Pulse Rate [Right] Respiratory Rate 18 18 20 Blood Pressure 103/61 L 104/74 L 100/56 L Blood Pressure [Right Arm] Blood Pressure Mean 75 84 70 Blood Pressure Mean [Right Arm] Blood Pressure Source Blood Pressure Source [Right Arm] Blood Pressure Position Blood Pressure Position [Right Arm] 02 Sat by Pulse Oximetry 100 100 100 Oxygen Delivery Method 12/04/23 23:00 12/04/23 23:10 12/04/23 23:15 Temperature 97.8 F Temperature Source Oral Pulse Rate 77 82 84 Pulse Rate [Right] Respiratory Rate 18 18 18 Blood Pressure 100/63 L 112/65 106/62 L Blood Pressure [Right Arm] Blood Pressure Mean 74 77 Blood Pressure Mean [Right Arm] Blood Pressure Source Automatic Cuff Blood Pressure Source [Right Arm] Blood Pressure Position Supine Blood Pressure Position [Right Arm] 02 Sat by Pulse Oximetry 98 100 Oxygen Delivery Method Room Air Lab Data Lab results reviewed: Yes I reviewed the patient's lab results. Lab Results 12/04/23 19:50: WBC 9.2, RBC 3.69 L, Hgb 12.1 L, Hct 38.5 L, MCV 104.6 H, MCH 32.9 H, MCHC 31.4 L, RDW 15.2, Plt Count 133 L, MPV 8.3, Neut % (Auto) 81.0 H, L ymph % (Auto) 8.4 L, [place] % (Auto) 9.5 H, Eos % (Auto) 0.6, Baso % (Auto) 0.4, Neut # (Auto) 7.4, Lymph # (Auto) 0.8, [place] # (Auto) 0.9, Eos # (Auto) 0.1, Baso # (Auto) 0.0, ESR 86 H, D-Dimer 0.69 H, Sodium 139, Potassium 5.2 H, Chloride 100, Carbon Dioxide 26, Anion Gap 18.2 H, BUN 36 H, Creatinine 6.10 H, Estimated Creat Clear 12, Estimated GFR 9 L*, Est GFR ( Amer) 10 L*, Glucose 128 H, Calcium 8.4, Phosphorus 5.9 H, Magnesium 1.8, Total Bilirubin 1.1, AST 31, ALT 18, Alkaline Phosphatase 37 L, C-Reactive Protein 101.5 H, NT-Pro-B Natriuret Pep 255261 H, Total Protein 7.1, Albumin 3.8, Globulin 3.3 H, Albumin/Globulin Ratio 1.2, Procalcitonin 0.644, TSH 1.35, Thyroxine (T4) 6.9 12/04/23 19:54: VBG pH 7.34, VBG pCO2 49.2, VBG pO2 36.7, VBG HCO3 25.9, VBG Total CO2 27.5 H, VBG O2 Saturation 63.1, VBG Base Excess 0.2, VBG Lactic Acid 2.2 H 12/04/23 19:50 12/04/23 19:50 Orders (Tests/Meds): ED MEDICATIONS Discontinued Medications Generic Name Dose Route Start Last Admin Trade Name Freq PRN Reason Stop Dose Admin Dalbavancin 1,500 mg/ Dextrose 250 mls @ 500 mls/hr 12/04/23 22:00 12/04/23 22:22 IV 12/04/23 22:01 500 mls/hr ONCE ONE Administration ORDERS Category Date Time Status BNP [NT Pro Brain Natriuretic Pep.] Stat Lab 12/04/23 19:50 Completed CBC w/Auto Diff [Complete Blood Count Auto Diff] Stat Lab 12/04/23 19:50 Completed CMP [Comprehensive Metabolic Panel] Stat Lab 12/04/23 19:50 Completed CRP [C-Reactive Protein] Stat Lab 12/04/23 19:50 Completed D-Dimer Stat Lab 12/04/23 19:50 Completed ESR [Erythrocyte Sedimentation Rate] Stat Lab 12/04/23 19:50 Completed MAG [Magnesium] Stat Lab 12/04/23 19:50 Completed PHOS [Phosphorous] Stat Lab 12/04/23 19:50 Completed Procalcitonin Stat Lab 12/04/23 19:50 Completed T4 (Thyroxine) Stat Lab 12/04/23 19:50 Completed TSH [Thyroid Stimulating Hormone] Stat Lab 12/04/23 19:50 Completed VBG [Venous Blood Gas] Stat RT 12/04/23 19:54 Completed CA venous doppler LE LT Stat Y 12/04/23 22:45 Ordered Medical Decision Narrative: In summary, this patient is a 78-year-old male presenting to the Emergency Department for evaluation of worsening in left lower extremity swelling in the setting of chronic lower extremity vascular insufficiency and swelling. Differential diagnoses considered include but are not limited to cellulitis, DVT, CHF exacerbation, volume overload. Ruling out the most morbid conditions drove assessment. It should be noted patient's history includes end stage renal disease on dialysis, peripheral vascular disease, type 2 diabetes which may or may not be at goal therapy. This complicates all aspects of care by increasing patient's risk for morbidity. I reviewed patient's past medical records and noted evaluation by PCP with bullous lesions on his lower extremities as per HPI. On exam, the patient is lying in bed in no acute distress. He is not tachycardic on exam. He is afebrile. He does have left greater than right lower extremity swelling, and his left lower extremity is red and warm. Workup included CBC, CMP, ESR, CRP, D-dimer, BNP. Labs were obtained that demonstrated elevated inflammatory markers. Patient's labs are also consistent with his end- stage renal disease with low GFR. Potassium is mildly elevated but not significantly. Blood gas demonstrates very mildly elevated lactic acid, but he does not have any other sepsis criteria at this time. Age adjusted D-dimer is negative. Ultimately since the D-dimer is negative based on age-adjusted criteria and he does have significant elevation in inflammatory markers, I feel he likely has cellulitis as opposed to DVT, but will have him follow-up for outpatient DVT ultrasound in the morning. After shared decision-making with the patient and family, they are agreeable to try [facility] for antibiotic treatment of left lower extremity cellulitis. He was given a dose here. He was given 1500 mg, as he is already on dialysis and is scheduled for tomorrow. I gave him instructions for follow-up for dialysis, instructions for very close follow-up with his primary care provider, and strict return precautions. He was discharged after all questions were answered. Critical Care Critical Care Time Critical Care Time: No
[2023-12-04 21:43] LABS: Procalcitonin 0.644 ng/mL (0.0-2.0); T4 (Thyroxine) 6.9 ug/dl (5.53-11.0)
[2023-12-04 21:57] LABS: Thyroid Stimulating Hormone 1.35 uIU/mL (0.465-4.68)
[2023-12-04 21:59] LABS: NT Pro Brain Natriuretic Pep. 106000 pg/mL (0-450)
[2023-12-04 22:04] LABS: Anion Gap 18.2 mEq/L (5-15); Bilirubin,Total 1.1 mg/dl (0.2-1.3); Blood Urea Nitrogen 36 mg/dl (9-20); Calcium 8.4 mg/dl (8.4-10.2); Carbon Dioxide 26 mmol/L (22.0-30.0); Chloride 100 mmol/L (98-107); Creatinine Clearance Estimated 12 mL/min (50-200); Estimated Glomerular Filt Rate 9 ml/min (>60); GFR (African American) 10 ML/MIN (>60); Glucose 128 mg/dl (74-100); Potassium 5.2 mmoL/L (3.5-5.1); Sodium 139 mmol/L (136-145)
--- NOTE | 2023-12-04 22:04 | PC.NURSE ---
rissa Aguilar was notified of the outpatient DVT US order.
[2023-12-04 22:05] LABS: Alanine Aminotransferase 18 U/L (12-78); Albumin Level 3.8 g/dl (3.5-5.0); Albumin/Globulin Ratio 1.2 (1.1-1.8); Alkaline Phosphatase 37 U/L (38-126); Aspartate Amino Transferase 31 U/L (17-59); Globulin 3.3 g/dL (1.3-3.2); Total Protein,Serum 7.1 g/dl (6.3-8.2)
[2023-12-04] MEDS: DALBAVANCIN HCL 1,500 MG in DEXTROSE 5 % IN WATER 250 ML 500 MG IV (22:22)
--- NOTE | 2023-12-04 23:35 | PC.NURSE ---
Pt. wound to left lower leg wrapped with gauze. and tape.
== END 2023-12-04 23:37 | disposition home or self-care (01) ==
PROVIDERS: Emergency Provider Emergency Medicine; PCP Internal Medicine
DX: L03.116 Cellulitis of left lower limb (principal); R23.8 Other skin changes; L13.8 Other specified bullous disorders; N18.6 End stage renal disease; Z99.2 Dependence on renal dialysis; E11.22 Type 2 diabetes mellitus with diabetic chronic kidney disease; I73.9 Peripheral vascular disease, unspecified; I73.89 Other specified peripheral vascular diseases; E78.5 Hyperlipidemia, unspecified; I12.0 Hypertensive chronic kidney disease with stage 5 chronic kidney disease or end stage renal disease; I25.119 Atherosclerotic heart disease of native coronary artery with unspecified angina pectoris; Z79.01 Long term (current) use of anticoagulants; Z95.1 Presence of aortocoronary bypass graft; Z95.0 Presence of cardiac pacemaker; I50.9 Heart failure, unspecified; I65.29 Occlusion and stenosis of unspecified carotid artery; I11.0 Hypertensive heart disease with heart failure
CPT/HCPCS: 80053; 82803; 83735; 83880; 84100; 84145; 84436; 84443; 85025; 85378; 85651; 86140; 96374; 99284; J0875; J7060

== ENCOUNTER 2023-12-20 20:53 | Emergency (ER) | payer MEDICARE, OTHER, SELFPAY ==
--- NOTE | 2023-12-20 20:50 | ECG_ITS ---
APPROVED REPORT Exam: Resting ECG HR:84 bpm ECG Measurements Heart Rate 84 AXES OR 132 P 85 QRSd 151 QRS 191 QT 425 T -4 QTc 466 Conclusion V paced rhythm, Sgarbossa negative Electronically signed by : EZEQUIEL FUENTES, 12/20/2023 23:44:21
--- NOTE | 2023-12-20 21:02 | XR_ITS ---
PROCEDURE INFORMATION: Exam: XR Chest Exam date and time: 12/20/2023 9:05 PM Age: 78 years old Clinical indication: Other: Edema; Additional info: Le edema, pain, eval for edema TECHNIQUE: Imaging protocol: Radiologic exam of the chest. Views: 1 view. COMPARISON: CR XR CHEST 2V 11/12/2023 1:11 PM FINDINGS: Tubes, catheters and devices: There is a left chest implanted cardiac device. Lungs: No evidence of acute pulmonary disease or infiltrates Pleural spaces: No large effusion or pneumothorax. Heart/Mediastinum: Stable cardiac and mediastinal contours. Bones/joints: No evidence of acute osseous abnormalities within the visualized portions of the thoracic spine and ribs. Osseous structures appear appropriate for patient age. The patient is status post median sternotomy. IMPRESSION: No dense parenchymal consolidation, pleural effusion, or pneumothorax.
--- NOTE | 2023-12-20 21:07 | [facility].EDCP ---
Discharge Plan Disposition Patient Disposition: Xfer Short-Term Hosp Chief Complaint: Extremity Injury, Lower Prescriptions Prescriptions: No Action tizanidine 2 mg tablet 2 mg PO Q8H PRN (Reason: Muscle Spasm) Patient Comments: TAKE 1 TO 2 TABLETS BY MOUTH EVERY 8 HOURS clopidogrel [Plavix] 75 mg tablet 75 mg PO DAILY Qty: 30 2RF isosorbide mononitrate 60 mg tablet extended release 24 hr 60 mg PO .COMPLEX Rx Instructions: 60 mg orally 1/2 tab twice daily; triamcinolone acetonide 0.1 % cream 1 applic topical TID PRN (Reason: Leg rash) Qty: 80 3RF atorvastatin 80 mg tablet 80 mg PO DAILY bisoprolol fumarate 5 mg tablet 2.5 mg PO DAILY Qty: 90 1RF Eliquis 5 mg tablet 5 mg PO BID cephalexin 500 mg capsule 500 mg PO BID Qty: 20 1RF Rx Instructions: Dose after dialysis nitroglycerin 0.4 mg tablet, sublingual See Rx Instructions .ROUTE .COMPLEX Qty: 25 7RF Dose Instruction: PLACE 1 TABLET UNDER THE TONGUE NEEDED FOR CHEST PAIN Rx Instructions: PLACE 1 TABLET UNDER THE TONGUE NEEDED FOR CHEST PAIN hydrocodone-acetaminophen 10-325 mg tablet 1 tab PO Q6H PRN (Reason: pain) Qty: 120 0RF cholecalciferol (vitamin D3) [Vitamin D3] 25 mcg (1,000 unit) Capsule 1,000 unit PO ONCE Referrals Follow up/Referrals: Provider,Referral, MD [Referring] - See instructions Clinical Impressions Clinical Impression: Fluid overload, CHF exacerbation, Acute hypoxemic respiratory failure Print Language Print Language: Italian Discharge ED Provider: Zaid Orozco HPI General Chief Complaint: Extremity Injury, Lower Stated Complaint: SOA Time Seen by Provider: 12/20/23 21:01 History of Present Illness HPI narrative: Please note that above description of symptoms, in this electronic medical record under categorization of recalled from ER triage doctor by RN are reflective of an initial nursing assessment, however, is not reflective of my full history and physical exam that was personally taken and clarified. Consequentially, this preceding description of symptoms, which may include the patient's categorized chief complaint in the EMR, do not reflect my personal clinical impression, and the ultimate description of history of present illness and patient stated complaints should be deferred to this section of the note. Unless stated otherwise or congruent with this section of the note, additional signs, symptoms, or incongruence should be interpreted as inaccurate with my clinical impression. Related Data Home Medications ?Medication ?Instructions ?Recorded ?Confirmed atorvastatin 80 mg tablet 80 mg PO DAILY Cholesterol 10/14/17 12/02/23 cholecalciferol (vitamin D3) 25 1,000 unit PO ONCE Supplement 09/25/22 12/02/23 mcg (1,000 unit) capsule (Vitamin D3) tizanidine 2 mg tablet 2 mg PO Q8H PRN Muscle Spasm 11/05/22 12/02/23 isosorbide mononitrate 60 mg 60 mg PO .COMPLEX 10/21/23 12/02/23 tablet,extended release 24 hr apixaban 5 mg tablet (Eliquis) 5 mg PO BID 11/18/23 12/02/23 Previous Rx's ?Medication ?Instructions ?Recorded bisoprolol fumarate 5 mg tablet 2.5 mg (1/2 x 5 mg) PO DAILY #90 06/26/23 tabs clopidogrel 75 mg tablet (Plavix) 75 mg PO DAILY #30 tabs 09/18/23 triamcinolone acetonide 0.1 % 1 applic topical TID PRN Leg rash 10/22/23 topical cream #80 grams nitroglycerin 0.4 mg sublingual See Rx Instructions .Route 10/30/23 tablet .COMPLEX #25 tabs hydrocodone 10 mg-acetaminophen 1 tab PO Q6H PRN pain #120 tabs 11/06/23 325 mg tablet cephalexin 500 mg capsule 500 mg PO BID #20 caps 12/02/23 Allergies Allergy/AdvReac Type Severity Reaction Status Date / Time dipyridamole Allergy Intermediate I-RASH Verified 12/02/23 16:01 [From PERSANTINE] [facility] Disclaimer: The information contained in this section may have been updated after the patient was seen, as this information can be updated by other
[2023-12-20 21:10] LABS: Basophils # 0.1 K/mm3 (0-0.2); Basophils % 0.9 % (0.1-2.0); Eosinophils # 0.2 K/mm3 (0.0-0.4); Eosinophils % 3.1 % (0.1-12.0); Hematocrit 42.2 % (42.0-52.0); Hemoglobin 12.4 g/dL (14.1-18.0); Lymphocytes # 0.9 K/mm3 (0.7-4.5); Lymphocytes % 13.7 % (10-50); Mean Corpuscular HGB Conc 29.3 g/dL (31.8-35.4); Mean Corpuscular Hemoglobin 30.6 pg (27.0-31.2); Mean Corpuscular Volume 104.4 fl (80-94); Mean Platelet Volume 7.4 fl (7.4-10.4); Monocytes # 0.6 K/mm3 (0.1-1.0); Monocytes % 8.9 % (1.7-9.3); Neutrophils # 5.1 K/mm3 (1.8-7.8); Neutrophils % 73.5 % (37.0-80.0); Platelet Count 194 K/mm3 (142-424); Red Blood Count 4.04 M/mm3 (4.60-6.20); Red Cell Distribution Width 14.9 % (11.5-17.5); White Blood Count 6.9 K/mm3 (4.8-10.8)
[2023-12-20 21:12] LABS: Albumin Level 3.9 g/dl (3.5-5.0); Chloride 101 mmol/L (98-107); Potassium 5.3 mmoL/L (3.5-5.1); Sodium 140 mmol/L (136-145)
[2023-12-20 21:14] LABS: Blood Urea Nitrogen 40 mg/dl (9-20); Estimated Glomerular Filt Rate 10 ml/min (>60); GFR (African American) 12 ML/MIN (>60)
[2023-12-20 21:15] LABS: Alanine Aminotransferase 9 U/L (12-78); Albumin/Globulin Ratio 1.2 (1.1-1.8); Alkaline Phosphatase 61 U/L (38-126); Anion Gap 15.3 mEq/L (5-15); Aspartate Amino Transferase 16 U/L (17-59); Bilirubin,Total 0.5 mg/dl (0.2-1.3); Calcium 8.4 mg/dl (8.4-10.2); Carbon Dioxide 29 mmol/L (22.0-30.0); Globulin 3.2 g/dL (1.3-3.2); Glucose 119 mg/dl (74-100); Total Protein,Serum 7.1 g/dl (6.3-8.2)
[2023-12-20 21:29] VITALS: BP 97/55; PULSE 79; RESP 14; TEMP 36.5; O2SAT 96; BMI 26.5
[2023-12-20 21:38] VITALS: BP 98/65; PULSE 75; RESP 16; TEMP 36.6; O2SAT 100
[2023-12-20 21:40] LABS: Troponin I 0.03 ng/ml (0.00-0.034)
--- NOTE | 2023-12-20 21:53 | PC.NURSE ---
on the floor and in with the patient at this time.
[2023-12-20 22:08] LABS: NT Pro Brain Natriuretic Pep. 125000 pg/mL (0-450)
--- NOTE | 2023-12-20 22:28 | PC.NURSE ---
contacted [facility] and notified of vbg
[2023-12-20 22:40] LABS: Lactate Venous 1.4 mmol/L (0.4-2.0); VBG Base Excess 3.6 mmol/L (-2.4-2.3); VBG HCO3 29.3 mmol/L (23-30); VBG Oxygen Saturation 60.4 % (50-70); VBG PCO2 54.6 mmol/L (35-51); VBG PH 7.35 mmol/L (7.31-7.41); VBG PO2 32.7 mmol/L (28-40); VBG Total CO2 30.9 mmol/L (23-27)
--- NOTE | 2023-12-20 22:44 | PC.NURSE ---
Contacted [facility] in regards to transferring, also contacted [facility] to [facility].
--- NOTE | 2023-12-20 22:52 | PC.NURSE ---
[facility], they requested [facility] COVID/FLU swab and they will be contacting us back.
[2023-12-20 22:59] LABS: Coronavirus 19, PCR Not Detected (NotDetected); Influenza A, PCR Not Detected (NotDetected); Influenza B, PCR Not Detected (NotDetected)
--- NOTE | 2023-12-20 23:10 | PC.NURSE ---
received call back from dr hoover from [facility] re: possible transfer
--- NOTE | 2023-12-21 00:27 | PC.NURSE ---
[facility]. gave number for report to primary nurse
--- NOTE | 2023-12-21 00:33 | PC.NURSE ---
Report called to BREEZY Drummond @ [facility]
--- NOTE | 2023-12-21 01:34 | PC.NURSE ---
spoke to EMS regarding transfer
[2023-12-21 01:51] LABS: Troponin I 0.02 ng/ml (0.00-0.034)
[2023-12-21 02:14] VITALS: BP 96/59; PULSE 79; RESP 16; TEMP 36.6; O2SAT 100
--- NOTE | 2023-12-21 02:36 | PC.NURSE ---
This RN found a gold band while cleaning the room. I called the emergency contact () and she stated this is his ring. SHe will be here to pick it up tomorrow. I left the ring at the front worker.
== END 2023-12-21 02:22 | disposition short-term general hospital (02) ==
PROVIDERS: Emergency Provider Emergency Medicine; PCP Internal Medicine
DX: J96.01 Acute respiratory failure with hypoxia (principal); I50.9 Heart failure, unspecified; E87.70 Fluid overload, unspecified; I25.118 Atherosclerotic heart disease of native coronary artery with other forms of angina pectoris; I13.2 Hypertensive heart and chronic kidney disease with heart failure and with stage 5 chronic kidney disease, or end stage renal disease; N18.6 End stage renal disease; E11.22 Type 2 diabetes mellitus with diabetic chronic kidney disease; E11.51 Type 2 diabetes mellitus with diabetic peripheral angiopathy without gangrene; I27.20 Pulmonary hypertension, unspecified; I70.1 Atherosclerosis of renal artery; E78.5 Hyperlipidemia, unspecified; G47.33 Obstructive sleep apnea (adult) (pediatric); I35.0 Nonrheumatic aortic (valve) stenosis
CPT/HCPCS: 71045; 80053; 82803; 83735; 83880; 84484; 85025; 87636; 93005; 96365; 99291; J3475

== ENCOUNTER 2024-01-19 07:22 | Outpatient (CLI) | payer MEDICARE, OTHER, SELFPAY ==
[2024-01-19 07:43] LABS: Basophils # 0.1 K/mm3 (0-0.2); Basophils % 0.8 % (0.1-2.0); Eosinophils # 0.2 K/mm3 (0.0-0.4); Eosinophils % 3.2 % (0.1-12.0); Hematocrit 28.7 % (42.0-52.0); Hemoglobin 8.5 g/dL (14.1-18.0); Mean Corpuscular HGB Conc 29.7 g/dL (31.8-35.4); Mean Corpuscular Hemoglobin 31.3 pg (27.0-31.2); Mean Corpuscular Volume 105.2 fl (80-94); Mean Platelet Volume 8.2 fl (7.4-10.4); Monocytes # 0.5 K/mm3 (0.1-1.0); Neutrophils # 4.7 K/mm3 (1.8-7.8); Neutrophils % 72.9 % (37.0-80.0); Platelet Count 190 K/mm3 (142-424); Red Blood Count 2.73 M/mm3 (4.60-6.20); Red Cell Distribution Width 16.4 % (11.5-17.5); White Blood Count 6.4 K/mm3 (4.8-10.8)
[2024-01-19 09:07] LABS: Chloride 103 mmol/L (98-107)
[2024-01-19 09:08] LABS: Potassium 4.4 mmoL/L (3.5-5.1); Sodium 142 mmol/L (136-145)
[2024-01-19 09:11] LABS: Anion Gap 21.4 mEq/L (5-15); Blood Urea Nitrogen 48 mg/dl (9-20); Carbon Dioxide 22 mmol/L (22.0-30.0); Estimated Glomerular Filt Rate 9 ml/min (>60); GFR (African American) 10 ML/MIN (>60); Glucose 138 mg/dl (74-100)
== END 2024-01-19 23:59 | disposition home or self-care (01) ==
PROVIDERS: PCP Internal Medicine; Visit Provider Nurse Practitioner
DX: D64.9 Anemia, unspecified (principal); J96.01 Acute respiratory failure with hypoxia
CPT/HCPCS: 36415; 80048; 85025

== ENCOUNTER 2024-01-27 09:56 | Outpatient (CLI) | payer MEDICARE, OTHER, SELFPAY ==
[2024-01-27 10:25] LABS: Basophils % 0.6 % (0.1-2.0); Eosinophils # 0.1 K/mm3 (0.0-0.4); Eosinophils % 1.2 % (0.1-12.0); Hematocrit 30.9 % (42.0-52.0); Hemoglobin 9.5 g/dL (14.1-18.0); Lymphocytes # 0.6 K/mm3 (0.7-4.5); Lymphocytes % 12.6 % (10-50); Mean Corpuscular HGB Conc 30.7 g/dL (31.8-35.4); Mean Corpuscular Hemoglobin 31.8 pg (27.0-31.2); Mean Corpuscular Volume 103.3 fl (80-94); Mean Platelet Volume 7.6 fl (7.4-10.4); Monocytes # 0.6 K/mm3 (0.1-1.0); Monocytes % 11.7 % (1.7-9.3); Neutrophils # 3.5 K/mm3 (1.8-7.8); Neutrophils % 73.9 % (37.0-80.0); Platelet Count 230 K/mm3 (142-424); Red Blood Count 2.99 M/mm3 (4.60-6.20); Red Cell Distribution Width 17.7 % (11.5-17.5); White Blood Count 4.7 K/mm3 (4.8-10.8)
== END 2024-01-27 23:59 | disposition home or self-care (01) ==
LOC: LAB 09:59
PROVIDERS: PCP Internal Medicine; Visit Provider Nurse Practitioner Family
DX: D64.9 Anemia, unspecified (principal); I25.118 Atherosclerotic heart disease of native coronary artery with other forms of angina pectoris; R53.83 Other fatigue; Z95.0 Presence of cardiac pacemaker; I11.0 Hypertensive heart disease with heart failure; I50.22 Chronic systolic (congestive) heart failure; E78.2 Mixed hyperlipidemia; E11.8 Type 2 diabetes mellitus with unspecified complications
CPT/HCPCS: 36415; 85025

== ENCOUNTER 2024-02-28 16:08 | Emergency (ER) | payer MEDICARE, OTHER, SELFPAY ==
[2024-02-28] VITALS (8 sets, daily range): BP systolic 102–131; BP diastolic 66–80; PULSE 78–97; RESP 16–20; TEMP 35.6–36.9; O2SAT 87–100; BMI 27.3
--- NOTE | 2024-02-28 16:13 | ED_ITS ---
<Statement entered by Thanh Owusu MD - 02/28/24 23:18> I was consulted by the SATINDER, and we discussed the complexity of the problems being addressed. I approved the treatment and management plan for this patient's care in the emergency department, thus performing a substantive portion of the medical decision making. Thanh Owusu MD, NEL, FACEP Discharge Plan Disposition Patient Disposition: Xfer Short-Term Hosp Condition: Serious Prescriptions Prescriptions: No Action tizanidine 2 mg tablet 2 mg PO Q8H PRN (Reason: Muscle Spasm) Patient Comments: TAKE 1 TO 2 TABLETS BY MOUTH EVERY 8 HOURS clopidogrel [Plavix] 75 mg tablet 75 mg PO DAILY Qty: 30 2RF triamcinolone acetonide 0.1 % cream 1 applic topical TID PRN (Reason: Leg rash) Qty: 80 3RF isosorbide mononitrate 60 mg tablet extended release 24 hr 30 mg PO BID gabapentin 100 mg capsule 100 mg PO TID duloxetine 20 mg capsule,delayed release(DR/EC) 20 mg PO DAILY PRN hydrocodone-acetaminophen 10-325 mg tablet 1 tab PO Q6H PRN (Reason: pain) Qty: 120 0RF atorvastatin 80 mg tablet 80 mg PO DAILY Eliquis 5 mg tablet 5 mg PO BID pantoprazole 40 mg tablet,delayed release (DR/EC) 40 mg PO DAILY cholecalciferol (vitamin D3) [Vitamin D3] 25 mcg (1,000 unit) Capsule 1,000 unit PO ONCE nitroglycerin [Nitrostat] 0.4 mg tablet, sublingual 0.4 mg sublingual NEEDED PRN (Reason: Chest Pain) Rx Instructions: PLACE 1 TABLET UNDER THE TONGUE NEEDED FOR CHEST PAIN Referrals Follow up/Referrals: Yordy Narayanan MD [Primary Care Provider] - See instructions Activity Restrictions/Add. Instructions Additional Instructions/Restrictions: To [facility] care of Dr. Sanches Clinical Impressions Clinical Impression: Acute hypoxic respiratory failure, Volume overload, Hypothermia, Shock Print Language Print Language: Irish Discharge ED Provider: Thanh Owusu General Adult HPI General Chief complaint: Weakness Stated complaint: not eating or drinking, weakness Time Seen by Provider: 02/28/24 16:13 History of Present Illness HPI narrative: Patient presents for evaluation of weakness, altered mental status. Patient has had a functional client over the last week. He normally ambulates with a walker however he is unable to even get out of bed today. He has multiple complex medical problems including end-stage renal disease on hemodialysis Friday, peripheral vascular disease status post bilateral femoral angioplasty, he has had decreasing oral intake and no interest of that, and has been less responsive and confused. Patient did dialyze yesterday and patient's notes that they had to put him on oxygen in order to do dialysis. It is unknown what his dry weight is is that the family and the patient are unaware. He reportedly has mitral valve insufficiency and has been told that it is [facility] that [facility] . Denies any specific complaints including chest pain fever chills hemoptysis hematochezia melena nausea vomit diarrhea but does report that he feels short of breath even lying in the stretcher. Related Data Home Medications ?Medication ?Instructions ?Recorded ?Confirmed atorvastatin 80 mg tablet 80 mg PO DAILY Cholesterol 10/14/17 02/17/24 cholecalciferol (vitamin D3) 25 1,000 unit PO ONCE Supplement 09/25/22 02/17/24 mcg (1,000 unit) capsule (Vitamin D3) tizanidine 2 mg tablet 2 mg PO Q8H PRN Muscle Spasm 11/05/22 02/17/24 apixaban 5 mg tablet (Eliquis) 5 mg PO BID 11/18/23 02/17/24 nitroglycerin 0.4 mg sublingual 0.4 mg sublingual NEEDED PRN 01/26/24 02/17/24 tablet (Nitrostat) Chest Pain pantoprazole 40 mg tablet,delayed 40 mg PO DAILY 01/27/24 02/17/24 release duloxetine 20 mg capsule,delayed 20 mg PO DAILY PRN 02/17/24 02/17/24 release gabapentin 100 mg capsule 100 mg PO TID 02/17/24 02/17/24 isosorbide mononitrate 60 mg 30 mg PO BID 02/17/24 02/17/24 tablet,extended release 24 hr Previous Rx's ?Medication ?Instructions ?Recorded clopidogrel 75 mg tablet (Plavix) 75 mg PO DAILY #30 tabs 09/18/23 triamcinolone acetonide 0.1 % 1 applic topical TID PRN Leg rash 10/22/23 topical cream #80 grams hydrocodone 10 mg-acetaminophen 1 tab PO Q6H PRN pain #120 tabs 02/17/24 325 mg tablet Allergies Allergy/AdvReac Type Severity Reaction Status Date / Time dipyridamole Allergy Intermediate I-RASH Verified 02/17/24 09:59 [From PERSANTINE] [facility] Disclaimer: The information contained in this section may have been updated after the patient was seen, as this information can be updated by other users. Medical History (Updated 02/28/24 @ 18:16 by JOSEPH Norton) Upper GI bleeding Mitral valve insufficiency Anemia Bleeding Fatigue Pacemaker Typical angina Aortic stenosis Angina pectoris Renal artery stenosis SOB (shortness of breath) on exertion Chest pain CKD (chronic kidney disease) Abdominal bruit Heart murmur Carotid artery stenosis Former heavy tobacco smoker Lung mass Pulmonary hypertension PVD (peripheral vascular disease) Congestive heart failure (CHF) GIOVANI (obstructive sleep apnea) Coronary artery disease PAD (peripheral artery disease) Diabetes mellitus Hyperlipidemia Hypertensive heart disease Surgical History Hx of CABG Family History Other No significant family history Social History Smoking Status: Unknown if ever smoked second hand exposure: No alcohol intake: never counseling provided: none substance use type: denies use current occupational status: retired Travel in the last 8 weeks: None household members: spouse housing: house current occupational exposures/hazards: No caffeine: No Other Medical History Have you received the Flu Vaccine for this season: No Have you received the Pneumonia Vaccine: Yes ROS Obtained: Yes Systems reviewed as appropriate & no additional complaints except as documented Physical Exam General General appearance: in no apparent distress and lethargic Respiratory Respiratory exam: Present normal lung sounds bilaterally Cardiovascular Cardiovascular exam: Present regular rate Neurological Exam Neurological exam: Absent alert or oriented X3 Psychiatric Psychiatric exam: Present normal affect Medical Decision Making Medical Records Medical records reviewed: Yes I reviewed the patient's medical records. Screening: Per USPSTF and CDC recommendations, given the prevalence of disease in our region, it is our hospital?s policy to screen for HIV and viral Hepatitis for all patients aged 18 and over and those with ongoing risk factors. Werner Inquiry Pt receiving controlled substance: No Vital Signs: 02/28/24 16:09 11/02/24 17:59 02/28/24 18:30 Temperature 96.0 F L Temperature Source Oral Pulse Rate 78 89 Pulse Rate [Radial] 97 H Respiratory Rate 20 18 Blood Pressure 124/80 116/75 Blood Pressure [Left Arm] 113/78 Blood Pressure Mean 93 95 Blood Pressure Mean [Left Arm] 89 Blood Pressure Source [Left Arm] Automatic Cuff Blood Pressure Position [Left Arm] Sitting 02 Sat by Pulse Oximetry 87 L 98 99 Oxygen Delivery Method Room Air Room Air Oxygen Flow Rate (LPM) 02/28/24 19:00 02/28/24 19:30 Temperature Temperature Source Pulse Rate 95 H 84 Pulse Rate [Radial] Respiratory Rate Blood Pressure 123/76 122/78 Blood Pressure [Left Arm] Blood Pressure Mean 90 Blood Pressure Mean [Left Arm] Blood Pressure Source [Left Arm] Blood Pressure Position [Left Arm] 02 Sat by Pulse Oximetry 100 99 Oxygen Delivery Method Nasal Cannula Oxygen Flow Rate (LPM) 2 Lab Data Lab results reviewed: Yes I reviewed the patient's lab results. Lab Results 02/28/24 16:20: WBC 5.8, RBC 4.18 L, Hgb 12.5 L, Hct 42.0, MCV 100.5 H, MCH 29.8, MCHC 29.7 L, RDW 16.5, Plt Count 230, MPV 7.0 L, Neut % (Auto) 75.5, Lymph % (Auto) 12.1, [place] % (Auto) 10.3 H, Eos % (Auto) 1.4, Baso % (Auto) 0.6, Neut # (Auto) 4.4, Lymph # (Auto) 0.7, [place] # (Auto) 0.6, Eos # (Auto) 0.1, Baso # (Auto) 0.0, PT 12.5, INR 1.13 H, Sodium 137, Potassium 4.3, Chloride 99, Carbon Dioxide 25, Anion Gap 17.3 H, BUN 14, Creatinine 3.90 H, Estimated Creat Clear 18, Estimated GFR 15 L*, Est GFR ( Amer) 18 L*, Glucose 112 H, Lactate 1.2, Calcium 8.5, Magnesium 2.0, Total Bilirubin 0.6, AST 18, ALT 9 L, Alkaline Phosphatase 64, Troponin I 0.11 H, NT-Pro-B Natriuret Pep > 74207 H, Total Protein 6.3, Albumin 3.7, Globulin 2.6, Albumin/Globulin Ratio 1.4, HIV 1&2 Antibody Rapid Nonreactive 02/28/24 16:20 02/28/24 16:20 Orders (Tests/Meds): ED MEDICATIONS Generic Name Dose Route Start Last Admin Trade Name Freq PRN Reason Stop Dose Admin Vancomycin HCl 2,000 mg/ 250 mls @ 125 mls/hr 02/28/24 18:15 02/28/24 19:15 Sodium Chloride IV 02/28/24 20:14 125 mls/hr ONCE ONE Administration Miscellaneous 1 each 02/28/24 18:15 02/28/24 18:48 Vancomycin Consult Request NOTAPPLIC 03/29/24 18:14 1 each CONSULT PHARMACY JEB Administration Discontinued Medications Generic Name Dose Route Start Last Admin Trade Name Freq PRN Reason Stop Dose Admin Piperacillin Sod/Tazobactam 50 mls @ 100 mls/hr 02/28/24 18:10 02/28/24 18:47 Sod 3.375 gm/ Sodium Chloride IV 02/28/24 18:39 100 mls/hr ONCE ONE Administration ORDERS Category Date Time Status Chest XR -- portable [XR chest portable] Stat Exams 02/28/24 16:19 Completed BNP [NT Pro Brain Natriuretic Pep.] Stat Lab 02/28/24 16:20 Completed CBC w/Auto Diff [Complete Blood Count Auto Diff] Stat Lab 02/28/24 16:20 Completed CMP [Comprehensive Metabolic Panel] Stat Lab 02/28/24 16:20 Completed HIV (1&2) Antibody Rapid Stat Lab 02/28/24 16:20 Completed Hep C Ab with Reflex to RNA Stat Lab 02/28/24 16:20 Received INR [Prothrombin Time INR] Stat Lab 02/28/24 16:20 Completed Lactic Acid Stat Lab 02/28/24 16:20 Completed Magnesium Stat Lab 02/28/24 16:20 Completed Rapid PCR Covid and Flu A/B Routine Lab 02/28/24 16:29 Received Rapid PCR Covid and Flu A/B Stat Lab 02/28/24 19:41 Ordered Trop I [Troponin I] Stat Lab 02/28/24 16:20 Completed Troponin I Q3H Lab 02/28/24 19:30 Ordered Troponin I Q3H Lab 11/02/24 22:30 Ordered UA [Urinalysis and Microscopic] Stat Lab 02/28/24 16:22 Ordered Blood Culture Stat Micro 02/28/24 16:23 Received HEART Score History (anamnesis): Slightly suspicious ECG: Non-specific disturbance Age: >65 years Risk factors: Atherosclerosis history Troponin: > 3x normal limit HEART Score: 7 Medical Decision Narrative: In summary patient is a 78-year-old male who presents to the emergency department for evaluation of weakness and encephalopathy. Patient is normotensive at 113/78 with a pulse of 97 breathing 20 times a minute however he is satting at 87% on room air upon arrival, and he is significantly hypothermic at 96 orally. Patient refused rectal temperature. Physical exam reveals an unwell appearing chronically ill-appearing 78-year-old gentleman who appears to be slightly lethargic auscultation the breath sounds reveals them to be diminished at the bilateral bases with some coarse rhonchi late, patient has bilateral Unna boots, the remainder of his exam is unremarkable nonfocal however his GCS is 13 as patient is unsure of what his complaints are.. Differential diagnosis includes undifferentiated shock given the encephalopathy and hypothermia, sepsis, volume overload, CHF, ACS etc. Initial workup will be conducted with plain film chest x-ray hematologic labs blood cultures urinalysis if able and he still makes urine. Initial interventions include supplemental O2 continuous pulse oximetry cardiac monitoring for now until his workup gives us a better idea. Initial workup reviewed by me shows patient has a normal white count with an absolute neutrophil count of 4.4 and no left shift, his INR is 1.13, CMP is significant for a gap of 17 creatinine of 3.9 GFR 15 initial troponin at 0.11 and his NT proBNP is listed as greater than 30,000. My informal interpretation of his plain film chest x-ray shows worsening pleural effusions and pulmonary edema however positioning is not optimal. Upon reevaluation patient's perfusion status has improved and he is mentating better after supplemental O2 and has a more stable blood pressure and is satting at 98% on room air. Given that I had interactive discussion with the transfer center at the [facility] in [place] about patient management and he has been accepted pending a COVID test by Dr. Sanches. Critical Care Critical Care Time Critical Care Time: Yes Attestation: On 02/28/24, the high probability of a clinically significant, sudden or life threatening deterioration of the following system: Cardiovascular; neurologic, required my full and direct attention, intervention and personal management. The time I documented below is in addition to time spent performing reported procedures but includes the following listed in this critical care notation. Total Time Total Critical Care Time: 30
--- NOTE | 2024-02-28 16:19 | XR_ITS ---
PROCEDURE INFORMATION: Exam: XR Chest Exam date and time: 02/28/2024 4:37 PM Age: 78 years old Clinical indication: Other: Hypoxia TECHNIQUE: Imaging protocol: Radiologic exam of the chest. Views: 1 view. COMPARISON: CR XR CHEST PORTABLE 12/20/2023 9:05 PM FINDINGS: Tubes, catheters and devices: Cardiac pulse generator leads are unchanged in position. Lungs: Overall decreased lung volumes. Bibasilar atelectasis. No acute airspace consolidation. Pleural spaces: Unremarkable. No pleural effusion. No pneumothorax. Heart/Mediastinum: Cardiomegaly. Bones/joints: Median sternotomy. IMPRESSION: Decreased lung volumes with bibasilar atelectasis.
--- NOTE | 2024-02-28 16:21 | ECG_ITS ---
APPROVED REPORT Exam: Resting ECG HR:89 bpm ECG Measurements Heart Rate 89 AXES [place] 127 P 87 QRSd 151 QRS 178 QT 425 T -13 QTc 471 Conclusion ELECTRONIC VENTRICULAR PACEMAKER ABNORMAL RHYTHM ECG UNCONFIRMED REPORT Electronically signed by : Michael Owusu, 02/28/2024 23:21:51
--- NOTE | 2024-02-28 16:26 | PC.NURSE ---
Patient placed on O2 related to low oxygen saturations.
--- NOTE | 2024-02-28 16:30 | PC.NURSE ---
pt refused rectal temp as well as in and out cath to obtain urine specimen. @ bedside. notified
[2024-02-28 16:47] LABS: Basophils % 0.6 % (0.1-2.0); Eosinophils # 0.1 K/mm3 (0.0-0.4); Eosinophils % 1.4 % (0.1-12.0); Hemoglobin 12.5 g/dL (14.1-18.0); Lymphocytes # 0.7 K/mm3 (0.7-4.5); Lymphocytes % 12.1 % (10-50); Mean Corpuscular HGB Conc 29.7 g/dL (31.8-35.4); Mean Corpuscular Hemoglobin 29.8 pg (27.0-31.2); Mean Corpuscular Volume 100.5 fl (80-94); Monocytes # 0.6 K/mm3 (0.1-1.0); Monocytes % 10.3 % (1.7-9.3); Neutrophils # 4.4 K/mm3 (1.8-7.8); Neutrophils % 75.5 % (37.0-80.0); Platelet Count 230 K/mm3 (142-424); Red Blood Count 4.18 M/mm3 (4.60-6.20); Red Cell Distribution Width 16.5 % (11.5-17.5); White Blood Count 5.8 K/mm3 (4.8-10.8)
[2024-02-28 17:02] LABS: Albumin Level 3.7 g/dl (3.5-5.0); Chloride 99 mmol/L (98-107); Potassium 4.3 mmoL/L (3.5-5.1); Sodium 137 mmol/L (136-145)
[2024-02-28 17:04] LABS: Alanine Aminotransferase 9 U/L (12-78); Alkaline Phosphatase 64 U/L (38-126); Anion Gap 17.3 mEq/L (5-15); Aspartate Amino Transferase 18 U/L (17-59); Bilirubin,Total 0.6 mg/dl (0.2-1.3); Blood Urea Nitrogen 14 mg/dl (9-20); Carbon Dioxide 25 mmol/L (22.0-30.0); Creatinine Clearance Estimated 18 mL/min (50-200); Estimated Glomerular Filt Rate 15 ml/min (>60); GFR (African American) 18 ML/MIN (>60); INR 1.13 (0.9-1.1); Lactic Acid 1.2 mmol/L (0.7-2.1); Prothrombin Time 12.5 seconds (10.1-12.5)
[2024-02-28 17:05] LABS: Albumin/Globulin Ratio 1.4 (1.1-1.8); Calcium 8.5 mg/dl (8.4-10.2); Globulin 2.6 g/dL (1.3-3.2); Glucose 112 mg/dl (74-100); Total Protein,Serum 6.3 g/dl (6.3-8.2)
[2024-02-28 17:23] LABS: NT Pro Brain Natriuretic Pep. > 30000 pg/mL (0-450)
[2024-02-28 17:25] LABS: Troponin I 0.11 ng/ml (0.00-0.034)
[2024-02-28 18:01] LABS: HIV (1&2) Antibody Rapid NONREACTIVE (NONREACTIVE)
--- NOTE | 2024-02-28 18:27 | PC.NURSE ---
[facility]u, [place] said they would give us a call back.
--- NOTE | 2024-02-28 18:28 | PC.NURSE ---
[facility] the [facility] Owusu for [facility], [facility] call [facility].
[2024-02-28] MEDS: PIPERCILLIN/TAZO 3.375 GM in 0.9 % SODIUM CHLORIDE 50 ML IV (18:47)
[2024-02-28] MEDS: VANCOMYCIN CONSULT REQUEST 1 EACH NOTAPPLIC (18:48)
[2024-02-28] MEDS: VANCOMYCIN HCL 2,000 MG in 0.9 % SODIUM CHLORIDE 250 ML 125 MG IV (19:15)
--- NOTE | 2024-02-28 19:40 | PC.NURSE ---
Dilshad Haas PA-C s/w [facility] for transfer. He asked me to check on Respiratory panel, I called lab and Sumi states they are out of test strips for full panels. I added the rapid covid order and they will run it now. [facility] will [facility] once results are completed. JOSE Salazar MD, and Luisito are now aware that Full respiratory panels are now send out until the test strips are replenished.
[2024-02-28 19:49] LABS: Coronavirus 19, PCR Not Detected (NotDetected); Influenza A, PCR Not Detected (NotDetected); Influenza B, PCR Not Detected (NotDetected)
--- NOTE | 2024-02-28 20:16 | PC.NURSE ---
Covid PCR is completed, Dilshad Haas PA-C calling [facility] now.
--- NOTE | 2024-02-28 21:11 | PC.NURSE ---
@ 2052 Gave report to Kalyan TIJERINA with the [facility] ([facility] [place]) @ 2099 Called [facility] for transport to [place] Transfer record completed and family updated with [facility] the [facility].
[2024-03-02 05:10] LABS: HCV Ab Non Reactive (Non Reactive)
== END 2024-02-28 21:45 | disposition short-term general hospital (02) ==
PROVIDERS: Physician Assistant; Emergency Provider Student in an Organized Health Care Education/Training Program; PCP Internal Medicine
DX: R41.82 Altered mental status, unspecified (principal); R53.1 Weakness; R63.8 Other symptoms and signs concerning food and fluid intake; R57.9 Shock, unspecified; E87.70 Fluid overload, unspecified; J96.01 Acute respiratory failure with hypoxia; T68.XXXA Hypothermia, initial encounter; N18.6 End stage renal disease; Z99.2 Dependence on renal dialysis
CPT/HCPCS: 71045; 80053; 83605; 83735; 83880; 84484; 85025; 85610; 86803; 87040; 87389; 87636; 93005; 96365; 96366; 96367; 99291; J2543; J3370